=== PATIENT | female | born 1955 | race Caucasian/White ===

== ENCOUNTER 2017-04-07 16:03 | Inpatient (IN) | payer MEDICARE, OTHER ==
[~2017-04-07] VITALS: Ht 154.9 cm; Wt 61.4 kg
[2017-04-07 16:47] LABS: BASO # 0.1 x10^3/uL (0.0-0.2); BASO % 1 % (0-3); EOS # 0.2 x10^3/uL (0.0-0.7); EOS % 2 % (0-3); HEMATOCRIT 38.9 % (36.0-47.0); HEMOGLOBIN 13.4 g/dL (12.0-15.5); LYMPH # 2.1 x10^3/uL (1.0-4.8); LYMPH % 27 % (24-48); MEAN CORPUSCULAR HEMOGLOBIN 31 pg (25-35); MEAN CORPUSCULAR HGB CONC 34 g/dL (31-37); MEAN CORPUSCULAR VOLUME 91 fL (79-100); MONO # 0.7 x10^3/uL (0.0-1.1); MONO % 9 % (0-9); NEUT # 4.9 x10^3uL (1.8-7.7); NEUT % 62 % (31-73); PLATELET COUNT 264 x10^3/uL (140-400); RED BLOOD COUNT 4.28 x10^6/uL (3.50-5.40); RED CELL DISTRIBUTION WIDTH 13.4 % (11.5-14.5)
[2017-04-07 16:55] LABS: ALBUMIN 3.3 g/dL (3.4-5.0); ALBUMIN/GLOBULIN RATIO 1.1 (1.0-1.7); CALCIUM 8.8 mg/dL (8.5-10.1); CREATININE 1.3 mg/dL (0.6-1.0); GFR 41.9; MAGNESIUM 2.1 mg/dL (1.8-2.4); POTASSIUM 3.8 mmol/L (3.5-5.1); TOTAL BILIRUBIN 0.4 mg/dL (0.2-1.0); TOTAL PROTEIN 6.3 g/dL (6.4-8.2)
--- NOTE | 2017-04-07 17:16 | EKG ---
[address] [address] Test Date: 2017-04-07 Test Time: 16:12:54 Pat Name: BRUNILDA MARTINEZ Department: Room: Gender: F [employer] Supervisor: : 1955 Requested By: MISTY BARRAZA Order Number: [id number] Reading MD: Manuel Guido Measurements Intervals [place] Rate: 74 P: 42 MS: 142 QRS: 36 QRSD: 90 T: 64 QT: 380 QTc: 422 Interpretive Statements SINUS RHYTHM Electronically Signed On 04-20-2017 14:20:23 CDT by Manuel Guido
--- NOTE | 2017-04-07 17:18 | PHYS DOC ---
Past History Past Medical History: Bipolar, Dementia, Schizophrenia Past Surgical History: No Surgical History Alcohol Use: None Drug Use: None Adult General Chief Complaint Chief Complaint: PSYCH EVALUATION HPI HPI Zahra has a history of schizophrenia and frontotemporal dementia with worsening symptoms today. She became more combative today. Her history is limited by her cognitive status Review of Systems Review of Systems Unable to obtain review of systems due to current cognitive status Allergies Allergies Allergies Coded Allergies Type Severity Reaction Last Updated Verified No Known Drug Allergies 04/07/17 No Physical Exam Physical Exam Constitutional: Well developed, well nourished, no acute distress, non-toxic appearance. [] HENT: Normocephalic, atraumatic, bilateral external ears normal, oropharynx moist, no oral exudates, nose normal. [] Eyes: PERRLA, EOMI, conjunctiva normal, no discharge. [] Neck: Normal range of motion, no tenderness, supple, no stridor. [] Cardiovascular:Heart rate regular rhythm, no murmur [] Lungs & Thorax: Bilateral breath sounds clear to auscultation [] Abdomen: Bowel sounds normal, soft, no tenderness, no masses, no pulsatile masses. [] Skin: Warm, dry, no erythema, no rash. [] Back: No tenderness, no CVA tenderness. [] Extremities: No tenderness, no cyanosis, no clubbing, ROM intact, no edema. [] Neurologic: no focal deficits noted. [] Current Patient Data Vital Signs Vital Signs Date Time Temp Pulse Resp B/P (MAP) Pulse Ox O2 Delivery O2 Flow Rate FiO2 04/07/17 16:10 98.1 78 18 97 Room Air Lab Results Laboratory Tests Test 04/07/17 16:21 White Blood Count 8.0 x10^3/uL (4.0-11.0) Red Blood Count 4.28 x10^6/uL (3.50-5.40) Hemoglobin 13.4 g/dL (12.0-15.5) Hematocrit 38.9 % (36.0-47.0) Mean Corpuscular Volume 91 fL (79-100) Mean Corpuscular Hemoglobin 31 pg (25-35) Mean Corpuscular Hemoglobin Concent 34 g/dL (31-37) Red Cell Distribution Width 13.4 % (11.5-14.5) Platelet Count 264 x10^3/uL (140-400) Neutrophils (%) (Auto) 62 % (31-73) Lymphocytes (%) (Auto) 27 % (24-48) Monocytes (%) (Auto) 9 % (0-9) Eosinophils (%) (Auto) 2 % (0-3) Basophils (%) (Auto) 1 % (0-3) Neutrophils # (Auto) 4.9 x10^3uL (1.8-7.7) Lymphocytes # (Auto) 2.1 x10^3/uL (1.0-4.8) Monocytes # (Auto) 0.7 x10^3/uL (0.0-1.1) Eosinophils # (Auto) 0.2 x10^3/uL (0.0-0.7) Basophils # (Auto) 0.1 x10^3/uL (0.0-0.2) Sodium Level 139 mmol/L (136-145) Potassium Level 3.8 mmol/L (3.5-5.1) Chloride Level 105 mmol/L (98-107) Carbon Dioxide Level 27 mmol/L (21-32) Anion Gap 7 (6-14) Blood Urea Nitrogen 17 mg/dL (7-20) Creatinine 1.3 mg/dL (0.6-1.0) H Estimated GFR (Cockcroft-Gault) 41.9 BUN/Creatinine Ratio 13 (6-20) Glucose Level 146 mg/dL (70-99) H Calcium Level 8.8 mg/dL (8.5-10.1) Magnesium Level 2.1 mg/dL (1.8-2.4) Total Bilirubin 0.4 mg/dL (0.2-1.0) Aspartate Amino Transferase (AST) 29 U/L (15-37) Alanine Aminotransferase (ALT) 31 U/L (14-59) Alkaline Phosphatase 99 U/L (46-116) Total Protein 6.3 g/dL (6.4-8.2) L Albumin 3.3 g/dL (3.4-5.0) L Albumin/Globulin Ratio 1.1 (1.0-1.7) EKG EKG [] Radiology/Procedures Radiology/Procedures [] Course & Med Decision Making Course & Med Decision Making No obvious medical issues [place] Disclaimer Dragon Disclaimer This chart was dictated in whole or in part using Voice Recognition software in a busy, high-work load, and often noisy Emergency Department environment. It may contain unintended and wholly unrecognized errors or omissions. Departure Departure: Impression: Primary Impression: Encounter for medical screening examination Disposition: 65 XFER TO PSYCH HOSP/UNIT Condition: STABLE Referrals: JENNY OCASIO JR, MD (PCP) MISTY BARRAZA MD Apr 07, 2017 17:18
[2017-04-07 18:15] LABS: BILIRUBIN,URINE NEG (NEG); CLARITY,URINE CLEAR; COLOR,URINE STRAW; GLUCOSE,URINE NEG (NEG); NITRITE,URINE NEG (NEG); UROBILINOGEN,URINE 0.2 mg/dL (0.2 mg/dL)
[2017-04-07 18:16] LABS: AMORPHOUS SEDIMENT,UR PRESENT /HPF; BACTERIA,URINE 0 /HPF (0-FEW); SQUAMOUS EPITHELIAL CELL,UR FEW /LPF
--- NOTE | 2017-04-07 20:12 | PDOC ---
Exam Jose Demential Exam: Jose Note: Please also refer to the separate dictated note~for this date of service dictated separately.~Patient seen individually. Discussed the patient with Nursing staff reviewed the chart.~Reviewed interim history and current functioning. Reviewed vital signs,~Labs/ Radiology~and current medications noted below. Continue current treatment with the changes noted in the dictated addendum note Assessment: Vital Signs: Vital Signs Date Time Temp Pulse Resp B/P (MAP) Pulse Ox O2 Delivery O2 Flow Rate FiO2 04/07/17 16:10 98.1 78 18 97 Room Air Labs: Laboratory Tests Test 04/07/17 16:21 04/07/17 17:30 White Blood Count 8.0 x10^3/uL (4.0-11.0) Red Blood Count 4.28 x10^6/uL (3.50-5.40) Hemoglobin 13.4 g/dL (12.0-15.5) Hematocrit 38.9 % (36.0-47.0) Mean Corpuscular Volume 91 fL (79-100) Mean Corpuscular Hemoglobin 31 pg (25-35) Mean Corpuscular Hemoglobin Concent 34 g/dL (31-37) Red Cell Distribution Width 13.4 % (11.5-14.5) Platelet Count 264 x10^3/uL (140-400) Neutrophils (%) (Auto) 62 % (31-73) Lymphocytes (%) (Auto) 27 % (24-48) Monocytes (%) (Auto) 9 % (0-9) Eosinophils (%) (Auto) 2 % (0-3) Basophils (%) (Auto) 1 % (0-3) Neutrophils # (Auto) 4.9 x10^3uL (1.8-7.7) Lymphocytes # (Auto) 2.1 x10^3/uL (1.0-4.8) Monocytes # (Auto) 0.7 x10^3/uL (0.0-1.1) Eosinophils # (Auto) 0.2 x10^3/uL (0.0-0.7) Basophils # (Auto) 0.1 x10^3/uL (0.0-0.2) Sodium Level 139 mmol/L (136-145) Potassium Level 3.8 mmol/L (3.5-5.1) Chloride Level 105 mmol/L (98-107) Carbon Dioxide Level 27 mmol/L (21-32) Anion Gap 7 (6-14) Blood Urea Nitrogen 17 mg/dL (7-20) Creatinine 1.3 mg/dL (0.6-1.0) H Estimated GFR (Cockcroft-Gault) 41.9 BUN/Creatinine Ratio 13 (6-20) Glucose Level 146 mg/dL (70-99) H Calcium Level 8.8 mg/dL (8.5-10.1) Magnesium Level 2.1 mg/dL (1.8-2.4) Total Bilirubin 0.4 mg/dL (0.2-1.0) Aspartate Amino Transferase (AST) 29 U/L (15-37) Alanine Aminotransferase (ALT) 31 U/L (14-59) Alkaline Phosphatase 99 U/L (46-116) Total Protein 6.3 g/dL (6.4-8.2) L Albumin 3.3 g/dL (3.4-5.0) L Albumin/Globulin Ratio 1.1 (1.0-1.7) Urine Collection Type U cath Urine Color Straw Urine Clarity Clear Urine pH 6.5 Urine Specific [place] <=1.005 Urine Protein Neg (NEG-TRACE) Urine Glucose (UA) Neg mg/dL (NEG) Urine Ketones (Stick) Neg mg/dL (NEG) Urine Blood Neg (NEG) Urine Nitrite Neg (NEG) Urine Bilirubin Neg (NEG) Urine Urobilinogen Dipstick 0.2 mg/dL (0.2 mg/dL) Urine Leukocyte Esterase Neg (NEG) Urine RBC 1-2 /HPF (0-2) Urine WBC 1-4 /HPF (0-4) Urine Squamous Epithelial Cells Few /LPF Urine Transitional Epithelial Cells Few /LPF Urine Amorphous Sediment Present /HPF Urine Bacteria 0 /HPF (0-FEW) Diagnosis: Problems: (1) Encounter for medical screening examination CRISTY SEWELL MD Apr 07, 2017 20:12
[2017-04-07] MEDS ORDERED: CETIRIZINE HCL 10 MG TABLET PO PRN (21:00)
[2017-04-07] MEDS ORDERED: BISMUTH SUBSALICYLATE 262 MG/15 ML ORAL.SUSP 236ML BOTTLE. PO PRN (21:00)
[2017-04-07] MEDS ORDERED: LOPERAMIDE 2 MG CAPSULE PO PRN (21:00)
[2017-04-07] MEDS ORDERED: HYDROcodone/APAP 5/325MG 1 TAB TABLET PO PRN (21:00)
[2017-04-07] MEDS ORDERED: ATOR20TA58 PO (21:08)
[2017-04-07] MEDS ORDERED: LOPE2CAP PO (21:08)
[2017-04-07] MEDS ORDERED: LORA1TAB PO (21:08)
[2017-04-07] MEDS ORDERED: VENL75CA6 PO (21:08)
[2017-04-07] MEDS ORDERED: CETI10TA16 PO (21:08)
[2017-04-07] MEDS ORDERED: BISM262O3 PO (21:08)
[2017-04-07] MEDS ORDERED: CARV6.252 PO (21:08)
[2017-04-07] MEDS ORDERED: RISP1TAB43 PO (21:08)
[2017-04-07] MEDS ORDERED: HYDR-2758 PO (21:08)
[2017-04-07] MEDS ORDERED: MULT1TAB57 PO (21:08)
[2017-04-07] MEDS ORDERED: MEMA28CA PO (21:08)
[2017-04-07] MEDS ORDERED: METHYL SALICYLATE/MENTHOL TOPICAL OINTMENT 29GM TUBE. TP PRN (21:15)
[2017-04-07] MEDS ORDERED: MAGNESIUM HYDROXIDE 2,400 MG/30 ML ORAL.SUSP. PO PRN (21:15)
[2017-04-07] MEDS ORDERED: LORazepam 1 MG TABLET PO PRN (21:15)
[2017-04-07] MEDS ORDERED: MAG HYDROX/AL HYDROX/SIMETH 30 ML ORAL.SUSP PO PRN (21:15)
[2017-04-07] MEDS: ATORVASTATIN CALCIUM 20 MG TABLET PO SCH (21:40)
[2017-04-07] MEDS: risperiDONE 1 MG TABLET. PO SCH (21:40)
[2017-04-07 22:40] VITALS: BP 163/78
--- NOTE | 2017-04-08 02:32 | ACF ---
Admission Criteria Forms PSYCHIATRIC DISORDERS Clinical Indications for Inpatient Care (Place 'X' for any and all applicable criteria): Ongoing inpatient care may be needed for 1 or more of the following(1)(2)(3)(4)( 6)(7)(8): [ ]I. Danger to self or others not manageable at lower level of care. [ ]II. Grave disability (eg, inability to perform self care necessary at lower level of care) [ ]III. Agitation or inappropriate behavior interfering with care for primary condition (eg, attempting to discontinue lines or drains prematurely, unable to cooperate with respiratory care) [x]IV. Severe disability or disorder indicated by ALL of the following: [x]a) Severe behavioral health disorder-related symptoms or condition indicated by 1 or more of the following: [ ]i) Severe problem with cognition, memory, judgment, or impulse control [x]ii) Severe clinical manifestations (eg, hallucinations, delusions, other acute psychotic symptoms, elma, extreme agitation or anxiety) [x]b) Patient management at lower level of care is not feasible until acute intervention or modification is initiated. Extended stay beyond goal length of stay for the primary condition may be needed untilALLof the following are present(1)(2)(3)(4)(722)(23): [ ]a) Danger to self or others is absent or manageable at lower level of care [ ]b) Behavior crisis management, including physical or chemical restraints, is required and is not available at a lower level of care. [ ]c) Behavioral symptoms (e.g., agitation, somnolence, inappropriate behavior) are present, and are not manageable at a lower level of care. [ ]d) Patient cannot understand follow-up treatment and crisis plan. [ ]e) Provider and supports are sufficiently available at lower level of care. [ ]f) Patient can participate (e.g., verify absence of plan for harm) and is in needed of monitoring. The original [facility] My [employer] content created by [facility] [employer] has been revised. The portions of the content which have been revised are identified through the use of italic text, and [employer] has neither reviewed nor approved the modified material. All other unmodified content is copyright [facility] [employer]. Please see references footnoted in the original [facility] edition 2015 Admission Criteria Met?: Yes BRANDON KIM Apr 08, 2017 02:32
[2017-04-08] MEDS: MEMANTINE 10 MG TABLET. PO SCH ×2 (08:25→21:00)
[2017-04-08] MEDS: NICOTINE 7MG PATCH. TD SCH (08:25)
[2017-04-08] MEDS: risperiDONE 1 MG TABLET. PO SCH ×2 (08:25→21:00)
[2017-04-08] MEDS: MULTIVITAMIN with MINERAL TABLET. PO SCH (08:25)
[2017-04-08] MEDS ORDERED: VENLAFAXINE XR 37.5 MG CAP.ER.24H. PO SCH (09:00)
[2017-04-08 10:17] VITALS: BP 140/92
[2017-04-08] MEDS: CARVEDILOL 6.25 MG TABLET PO SCH ×2 (10:27→17:03)
[2017-04-08 14:07] LABS: THYROID STIM HORMONE (TSH) 2.643 uIU/mL (0.358-3.740)
[2017-04-08 16:09] VITALS: BP 145/82
--- NOTE | 2017-04-08 17:41 | PDOC2 ---
CONSULT Date of Admission DATE: 04/07/17 TIME: 17:27 Reason for Consult: medical management Referring Physician: Dr Barros Chief Complaint The patient lives at [facility] She was noted to be resistive , aggressive with care, displaying bizzare behaviourslike comin with underwaer over clothing, moving heavy furnitureand has attempted to hit staff Source: Caregiver Problem List Problems HTN HYPERLIDEMIA CKD Dysphagia Picks disease Aphasia History of Present Illness Diagnosed with dementia about 2 years and a year ago she was living home Cardiovascular: HTN, hyperipidemia CENTRAL NERVOUS SYSTEM: Dementia GI: Other (dysphgia) Heme/Onc: No pertinent hx Hepatobiliary: No pertinent hx Psych: Schizophrenia Renal/: Chronic renal insuff Endocrine: No pertinent hx Dermatology: No pertinent hx Past Surgical History: No pertinent history Smoke: <1 pack per day ALCOHOL: none Drugs: None Lives: Prison Current Medications Current Medications Atorvastatin Calcium (Lipitor) 20 mg QHS PO Last administered on 04/07/17 21: 40; Start 04/07/17 at 21:00 Bismuth Subsalicylate (Pepto-Bismol) 262 mg PRN DAILY PRN PO GI SYMPTOMS; Start 04/07/17 at 21:00 Carvedilol (Coreg) 6.25 mg BIDWMEALS PO Last administered on 04/08/17 17:03; Start 04/08/17 at 08:00 Cetirizine HCl (ZyrTEC) 10 mg PRN DAILY PRN PO ALLERGIES; Start 04/07/17 at 21: 00 Acetaminophen/ Hydrocodone Bitart (Lortab 5/325) 1 tab PRN Q4HRS PRN PO PAIN; Start 04/07/17 at 21:00 Loperamide HCl (Imodium) 2 mg PRN DAILY PRN PO loose stools; Start 04/07/17 at 21:00 Multivitamins/ Calcium (Thera-M Plus) 1 tab DAILY PO Last administered on 08:25; Start 04/08/17 at 09:00 Lorazepam (Ativan) 1 mg PRN TID PRN PO ANXIETY / AGITATION; Start 04/07/17 at 21:15 Risperidone (RisperDAL) 1 mg BID PO Last administered on 04/08/17 08:25; Start 04/07/17 at 21:30 Memantine (Namenda) 10 mg BID PO Last administered on 04/08/17 08:25; Start at 09:00 Venlafaxine HCl (Effexor Xr) 37.5 mg BID PO Last administered on 04/08/17 08: 25; Start 04/08/17 at 09:00 Acetaminophen (Tylenol) 650 mg PRN Q6HRS PRN PO PAIN / TEMP; Start 04/07/17 at 21:15 Multi-Ingredient Ointment (Analgesic [place]) 1 lisa PRN QID PRN TP MUSCLE PAIN; Start 04/07/17 at 21:15 Al Hydroxide/Mg Hydroxide (Mylanta Plus Xs) 15 ml PRN AFTMEALHC PRN PO DYSPEPSIA; Start 04/07/17 at 21:15 Magnesium Hydroxide (Milk Of Magnesia) 2,400 mg PRN QHS PRN PO CONSTIPATION; Start 04/07/17 at 21:15 Nicotine (Nicoderm Cq 7mg) 1 patch DAILY TD Last administered on 04/08/17 08: 25; Start 04/08/17 at 09:00 Active Scripts Active Reported [place] Bismuth (Bismuth Subsalicylate) 262 Mg/15 Ml Oral.susp 262 Mg PO PRN DAILY PRN Lorazepam 1 Mg Tablet 1 Mg PO PRN TID PRN Loperamide (Loperamide Hcl) 2 Mg Capsule 2 Mg PO PRN PRN Hydrocodone-Apap 5-325 (Hydrocodone Bit/Acetaminophen) 1 Each Tablet 1 Tab PO PRN Q4HRS PRN Cetirizine Hcl 10 Mg Tablet 10 Mg PO PRN DAILY PRN Risperdal (Risperidone) 1 Mg Tablet 1 Mg PO BID Atorvastatin Calcium 20 Mg Tablet 20 Mg PO QHS Carvedilol 6.25 Mg Tablet 6.25 Mg PO BIDWMEALS Venlafaxine Hcl Er (Venlafaxine Hcl) 75 Mg Cap.er.24h 75 Mg PO DAILY Therems-M (Multivits, W-Fe,Other Min) 1 Each Tablet 1 Each PO DAILY Namenda Xr (Memantine Hcl) 28 Mg Cap.spr.24 28 Mg PO DAILY Allergies: Coded Allergies: No Known Drug Allergies (Unverified , 04/07/17) Physical Exam aphasic does not give any useful information Vitals are stable she is ambulatory without assistance or assistive devices General: Other VITALS Vital Signs Date Time Temp Pulse Resp B/P (MAP) Pulse Ox O2 Delivery O2 Flow Rate FiO2 04/08/17 17:03 81 145/82 04/08/17 16:09 98.4 18 96 04/07/17 22:40 Room Air Labs Laboratory Tests Test 04/07/17 16:21 04/07/17 16:25 04/07/17 17:30 White Blood Count 8.0 x10^3/uL (4.0-11.0) Red Blood Count 4.28 x10^6/uL (3.50-5.40) Hemoglobin 13.4 g/dL (12.0-15.5) Hematocrit 38.9 % (36.0-47.0) Mean Corpuscular Volume 91 fL (79-100) Mean Corpuscular Hemoglobin 31 pg (25-35) Mean Corpuscular Hemoglobin Concent 34 g/dL (31-37) Red Cell Distribution Width 13.4 % (11.5-14.5) Platelet Count 264 x10^3/uL (140-400) Neutrophils (%) (Auto) 62 % (31-73) Lymphocytes (%) (Auto) 27 % (24-48) Monocytes (%) (Auto) 9 % (0-9) Eosinophils (%) (Auto) 2 % (0-3) Basophils (%) (Auto) 1 % (0-3) Neutrophils # (Auto) 4.9 x10^3uL (1.8-7.7) Lymphocytes # (Auto) 2.1 x10^3/uL (1.0-4.8) Monocytes # (Auto) 0.7 x10^3/uL (0.0-1.1) Eosinophils # (Auto) 0.2 x10^3/uL (0.0-0.7) Basophils # (Auto) 0.1 x10^3/uL (0.0-0.2) Sodium Level 139 mmol/L (136-145) Potassium Level 3.8 mmol/L (3.5-5.1) Chloride Level 105 mmol/L (98-107) Carbon Dioxide Level 27 mmol/L (21-32) Anion Gap 7 (6-14) Blood Urea Nitrogen 17 mg/dL (7-20) Creatinine 1.3 mg/dL (0.6-1.0) Estimated GFR (Cockcroft-Gault) 41.9 BUN/Creatinine Ratio 13 (6-20) Glucose Level 146 mg/dL (70-99) Calcium Level 8.8 mg/dL (8.5-10.1) Magnesium Level 2.1 mg/dL (1.8-2.4) Total Bilirubin 0.4 mg/dL (0.2-1.0) Aspartate Amino Transf (AST/SGOT) 29 U/L (15-37) Alanine Aminotransferase (ALT/SGPT) 31 U/L (14-59) Alkaline Phosphatase 99 U/L (46-116) Total Protein 6.3 g/dL (6.4-8.2) Albumin 3.3 g/dL (3.4-5.0) Albumin/Globulin Ratio 1.1 (1.0-1.7) Triglycerides Level 80 mg/dL (0-150) Cholesterol Level 161 mg/dL (0-200) LDL Cholesterol, Calculated 77 mg/dL (0-100) VLDL Cholesterol, Calculated 16 mg/dL (0-40) Non-HDL Cholesterol Calculated 93 mg/dL (0-129) HDL Cholesterol 68 mg/dL (40-60) Cholesterol/HDL Ratio 2.0 Thyroid Stimulating Hormone (TSH) 2.643 uIU/mL (0.358-3.740) Iron Level 82 ug/dL (50-170) Total Iron Binding Capacity 302 ug/dL (250-450) Iron Saturation 27 % (15-34) 25-Hydroxy Vitamin D Total 29.6 ng/mL (30.0-100.0) Urine Collection Type U cath Urine Color Straw Urine Clarity Clear Urine pH 6.5 Urine Specific [place] <=1.005 Urine Protein Neg (NEG-TRACE) Urine Glucose (UA) Neg mg/dL (NEG) Urine Ketones (Stick) Neg mg/dL (NEG) Urine Blood Neg (NEG) Urine Nitrite Neg (NEG) Urine Bilirubin Neg (NEG) Urine Urobilinogen Dipstick 0.2 mg/dL (0.2 mg/dL) Urine Leukocyte Esterase Neg (NEG) Urine RBC 1-2 /HPF (0-2) Urine WBC 1-4 /HPF (0-4) Urine Squamous Epithelial Cells Few /LPF Urine Transitional Epithelial Cells Few /LPF Urine Amorphous Sediment Present /HPF Urine Bacteria 0 /HPF (0-FEW) Assessment/Plan Hypertension to continue coreg Hyperlipidemia continue atorvastatin CKD monitor Tobacco use disorder encourage to quit Vitamin D deficiency to replace Problems: LISETH LUNDBERG MD Apr 08, 2017 17:41
[2017-04-08] MEDS: VENLAFAXINE 50 MG TABLET. PO SCH ×3 (19:00→21:04)
[2017-04-08] MEDS ORDERED: VENL225T PO (19:01)
[2017-04-08 19:08] LABS: T3 TOTAL 130 ng/dL (71-180); THYROXINE 8.4 ug/dL (4.5-12.0)
--- NOTE | 2017-04-08 20:35 | PDOC ---
Exam Jose Demential Exam: Jose Note: Please also refer to the separate dictated note~for this date of service dictated separately.~Patient seen individually. Discussed the patient with Nursing staff reviewed the chart.~Reviewed interim history and current functioning. Reviewed vital signs,~Labs/ Radiology~and current medications noted below. Continue current treatment with the changes noted in the dictated addendum note Assessment: Vital Signs: Vital Signs Date Time Temp Pulse Resp B/P (MAP) Pulse Ox O2 Delivery O2 Flow Rate FiO2 04/08/17 17:03 81 145/82 04/08/17 16:09 98.4 18 96 04/07/17 22:40 Room Air I&O Intake and Output 04/08/17 07:00 Intake Total 120 ml Balance 120 ml Intake Oral 120 ml Labs: Laboratory Tests Test 04/07/17 21:55 Thyroxine (T4) 8.4 ug/dL (4.5-12.0) Total Triiodothyronine (TT3) 130 ng/dL (71-180) RPR Titer Additional Testing Pending Current Medications: Meds: Current Medications Atorvastatin Calcium (Lipitor) 20 mg QHS PO Last administered on 04/07/17 21: 40; Start 04/07/17 at 21:00 Bismuth Subsalicylate (Pepto-Bismol) 262 mg PRN DAILY PRN PO GI SYMPTOMS; Start 04/07/17 at 21:00 Carvedilol (Coreg) 6.25 mg BIDWMEALS PO Last administered on 04/08/17 17:03; Start 04/08/17 at 08:00 Cetirizine HCl (ZyrTEC) 10 mg PRN DAILY PRN PO ALLERGIES; Start 04/07/17 at 21: 00 Acetaminophen/ Hydrocodone Bitart (Lortab 5/325) 1 tab PRN Q4HRS PRN PO PAIN; Start 04/07/17 at 21:00 Loperamide HCl (Imodium) 2 mg PRN DAILY PRN PO loose stools; Start 04/07/17 at 21:00 Multivitamins/ Calcium (Thera-M Plus) 1 tab DAILY PO Last administered on 08:25; Start 04/08/17 at 09:00 Lorazepam (Ativan) 1 mg PRN TID PRN PO ANXIETY / AGITATION; Start 04/07/17 at 21:15 Risperidone (RisperDAL) 1 mg BID PO Last administered on 04/08/17 08:25; Start 04/07/17 at 21:30 Memantine (Namenda) 10 mg BID PO Last administered on 04/08/17 08:25; Start at 09:00 Venlafaxine HCl (Effexor Xr) 37.5 mg BID PO Last administered on 04/08/17 08: 25; Start 04/08/17 at 09:00; Stop 04/08/17 at 18:57; Status DC Acetaminophen (Tylenol) 650 mg PRN Q6HRS PRN PO PAIN / TEMP; Start 04/07/17 at 21:15 Multi-Ingredient Ointment (Analgesic [place]) 1 lisa PRN QID PRN TP MUSCLE PAIN; Start 04/07/17 at 21:15 Al Hydroxide/Mg Hydroxide (Mylanta Plus Xs) 15 ml PRN AFTMEALHC PRN PO DYSPEPSIA; Start 04/07/17 at 21:15 Magnesium Hydroxide (Milk Of Magnesia) 2,400 mg PRN QHS PRN PO CONSTIPATION; Start 04/07/17 at 21:15 Nicotine (Nicoderm Cq 7mg) 1 patch DAILY TD Last administered on 04/08/17 08: 25; Start 04/08/17 at 09:00 Vitamin D (Vitamin D3) 50,000 unit WEEKLY PO ; Start 04/09/17 at 09:00 Venlafaxine HCl (Effexor) 50 mg TID PO ; Start 04/08/17 at 19:00 Divalproex Sodium (Depakote Sprinkles) 250 mg HS PO ; Start 04/08/17 at 21:00 Active Scripts Active Reported Venlafaxine Hcl Er (Venlafaxine Hcl) 225 Mg Tab.er.24 225 Mg PO DAILY [place] Bismuth (Bismuth Subsalicylate) 262 Mg/15 Ml Oral.susp 262 Mg PO PRN DAILY PRN Lorazepam 1 Mg Tablet 1 Mg PO PRN TID PRN Loperamide (Loperamide Hcl) 2 Mg Capsule 2 Mg PO PRN PRN Hydrocodone-Apap 5-325 (Hydrocodone Bit/Acetaminophen) 1 Each Tablet 1 Tab PO PRN Q4HRS PRN Cetirizine Hcl 10 Mg Tablet 10 Mg PO PRN DAILY PRN Risperdal (Risperidone) 1 Mg Tablet 1 Mg PO BID Atorvastatin Calcium 20 Mg Tablet 20 Mg PO QHS Carvedilol 6.25 Mg Tablet 6.25 Mg PO BIDWMEALS Venlafaxine Hcl Er (Venlafaxine Hcl) 75 Mg Cap.er.24h 75 Mg PO DAILY Therems-M (Multivits,Th W-Fe,Other Min) 1 Each Tablet 1 Each PO DAILY Namenda Xr (Memantine Hcl) 28 Mg Cap.spr.24 28 Mg PO DAILY Diagnosis: Problems: (1) Encounter for medical screening examination CRISTY SEWELL MD Apr 08, 2017 20:35
[2017-04-08] MEDS: ATORVASTATIN CALCIUM 20 MG TABLET PO SCH (21:00)
[2017-04-08] MEDS: DIVALPROEX 125 MG CAP.SPRINK PO SCH (21:02)
[2017-04-09 05:34] VITALS: BP 176/92
[2017-04-09 06:09] LABS: HEMOGLOBIN A1C 5.7 % (4.8-5.6)
[2017-04-09] MEDS: NICOTINE 7MG PATCH. TD SCH (08:23)
[2017-04-09] MEDS: risperiDONE 1 MG TABLET. PO SCH ×2 (08:24→19:38)
[2017-04-09] MEDS: MEMANTINE 10 MG TABLET. PO SCH ×2 (08:24→19:38)
[2017-04-09] MEDS: VENLAFAXINE 50 MG TABLET. PO SCH ×3 (08:24→19:38)
[2017-04-09] MEDS: MULTIVITAMIN with MINERAL TABLET. PO SCH (08:24)
[2017-04-09] MEDS: CARVEDILOL 6.25 MG TABLET PO SCH ×2 (08:25→17:11)
[2017-04-09] MEDS: CHOLECALCIFEROL (VITAMIN D3) 50,000 UNIT CAPSULE PO SCH (08:25)
[2017-04-09 16:42] VITALS: BP 144/90
[2017-04-09] MEDS: DIVALPROEX 125 MG CAP.SPRINK PO SCH (19:38)
[2017-04-09] MEDS: ATORVASTATIN CALCIUM 20 MG TABLET PO SCH (19:38)
--- NOTE | 2017-04-09 20:38 | PDOC ---
Exam Jose Demential Exam: Jose Note: Please also refer to the separate dictated note~for this date of service dictated separately.~Patient seen individually. Discussed the patient with Nursing staff reviewed the chart.~Reviewed interim history and current functioning. Reviewed vital signs,~Labs/ Radiology~and current medications noted below. Continue current treatment with the changes noted in the dictated addendum note Patient was seen on grounds the evening of 04/09. Per nursing report patient as been wandering anxious exit seeking pushing the exit door following patients out of the door. At times she is somewhat difficult to redirect and is not communicating verbally very much. She was able to read her name Zahra on the nameplate outside her door. We will obtain her past psychiatric records for when she was diagnosed with frontal lobe dementia and picks disease and also check a CT head since we do not have a record of one being done recently. Review of systems patient is not very forthcoming verbally when questioned on this but no overt CV GI/ pulmonary eye ENT system symptoms on review. Reliability poor. She is not very verbal at all. Mental status examination: Patient seems oriented to herself. She is not very verbal. Insight and judgment recent remote memory attention concentration fund of knowledge poor consistent with her diagnosis. She appears somewhat psychotic at times but difficult to assess since she is quite nonverbal. Intellect impaired judgment marginal language function seems impaired. No active suicidal or homicidal ideation. Impression: Major neurocognitive disorder multifactorial secondary to frontotemporal dementia of picks disease Alzheimers vascular with delusions and depression behavioral disturbance. Bipolar 1 disorder mixed with psychotic features anxiety disorder unspecified impulse control disorder unspecified Plan: Well obtain her past psychiatric records from when she was diagnosed with the above diagnoses. Continue Depakote 250 mg at bedtime check labs level in [address] head the Effexor was reduced to Effexor ER 150 mg a day continue Ativan 1 mg 3 times a day when necessary Namenda XR 28 mg a day Risperdal 1 mg twice a day for now and adjust further as clinically indicated. Assessment: Vital Signs: Vital Signs Date Time Temp Pulse Resp B/P (MAP) Pulse Ox O2 Delivery O2 Flow Rate FiO2 04/09/17 17:11 89 144/90 04/09/17 16:03 98.7 21 94 04/07/17 22:40 Room Air I&O Intake and Output 04/09/17 07:00 Intake Total 240 ml Balance 240 ml Intake Oral 240 ml # Bowel Movements 2 Current Medications: Meds: Current Medications Atorvastatin Calcium (Lipitor) 20 mg QHS PO Last administered on 04/09/17 19: 38; Start 04/07/17 at 21:00 Bismuth Subsalicylate (Pepto-Bismol) 262 mg PRN DAILY PRN PO GI SYMPTOMS; Start 04/07/17 at 21:00 Carvedilol (Coreg) 6.25 mg BIDWMEALS PO Last administered on 04/09/17 17:11; Start 04/08/17 at 08:00 Cetirizine HCl (ZyrTEC) 10 mg PRN DAILY PRN PO ALLERGIES; Start 04/07/17 at 21: 00 Acetaminophen/ Hydrocodone Bitart (Lortab 5/325) 1 tab PRN Q4HRS PRN PO PAIN; Start 04/07/17 at 21:00 Loperamide HCl (Imodium) 2 mg PRN DAILY PRN PO loose stools; Start 04/07/17 at 21:00 Multivitamins/ Calcium (Thera-M Plus) 1 tab DAILY PO Last administered on 08:24; Start 04/08/17 at 09:00 Lorazepam (Ativan) 1 mg PRN TID PRN PO ANXIETY / AGITATION; Start 04/07/17 at 21:15 Risperidone (RisperDAL) 1 mg BID PO Last administered on 04/09/17 19:38; Start 04/07/17 at 21:30 Memantine (Namenda) 10 mg BID PO Last administered on 04/09/17 19:38; Start at 09:00 Venlafaxine HCl (Effexor Xr) 37.5 mg BID PO Last administered on 04/08/17 08: 25; Start 04/08/17 at 09:00; Stop 04/08/17 at 18:57; Status DC Acetaminophen (Tylenol) 650 mg PRN Q6HRS PRN PO PAIN / TEMP; Start 04/07/17 at 21:15 Multi-Ingredient Ointment (Analgesic [place]) 1 lisa PRN QID PRN TP MUSCLE PAIN; Start 04/07/17 at 21:15 Al Hydroxide/Mg Hydroxide (Mylanta Plus Xs) 15 ml PRN AFTMEALHC PRN PO DYSPEPSIA; Start 04/07/17 at 21:15 Magnesium Hydroxide (Milk Of Magnesia) 2,400 mg PRN QHS PRN PO CONSTIPATION; Start 04/07/17 at 21:15 Nicotine (Nicoderm Cq 7mg) 1 patch DAILY TD Last administered on 04/09/17 08: 23; Start 04/08/17 at 09:00 Vitamin D (Vitamin D3) 50,000 unit WEEKLY PO Last administered on 04/09/17 08: 25; Start 04/09/17 at 09:00 Venlafaxine HCl (Effexor) 50 mg TID PO Last administered on 04/09/17 19:38; Start 04/08/17 at 19:00 Divalproex Sodium (Depakote Sprinkles) 250 mg HS PO Last administered on 19:38; Start 04/08/17 at 21:00 Active Scripts Active Reported Venlafaxine Hcl Er (Venlafaxine Hcl) 225 Mg Tab.er.24 225 Mg PO DAILY [place] Bismuth (Bismuth Subsalicylate) 262 Mg/15 Ml Oral.susp 262 Mg PO PRN DAILY PRN Lorazepam 1 Mg Tablet 1 Mg PO PRN TID PRN Loperamide (Loperamide Hcl) 2 Mg Capsule 2 Mg PO PRN PRN Hydrocodone-Apap 5-325 (Hydrocodone Bit/Acetaminophen) 1 Each Tablet 1 Tab PO PRN Q4HRS PRN Cetirizine Hcl 10 Mg Tablet 10 Mg PO PRN DAILY PRN Risperdal (Risperidone) 1 Mg Tablet 1 Mg PO BID Atorvastatin Calcium 20 Mg Tablet 20 Mg PO QHS Carvedilol 6.25 Mg Tablet 6.25 Mg PO BIDWMEALS Venlafaxine Hcl Er (Venlafaxine Hcl) 75 Mg Cap.er.24h 75 Mg PO DAILY [place]-M (Multivits, W-Fe,Other Min) 1 Each Tablet 1 Each PO DAILY Namenda Xr (Memantine Hcl) 28 Mg Cap.spr.24 28 Mg PO DAILY Diagnosis: Problems: (1) Encounter for medical screening examination CRISTY SEWELL MD Apr 09, 2017 20:38
--- NOTE | 2017-04-09 21:25 | RAD ---
CT Head W/O Contrast: History: Change mental status Comparison: none Axial images were obtained without contrast. There is moderate diffuse atrophy. There is no mass effect, extraaxial fluid collections or hydrocephalus. There is no focal loss of pacheco-white matter distinction to suggest acute ischemia, i.e. stroke. Impression: Moderate diffuse cerebral and cerebellar atrophy is advanced for the patient's age. Otherwise no acute findings. PQRS Compliance Statement: One or more of the following individualized dose reduction techniques were utilized for this examination: 1. Automated exposure control 2. Adjustment of the mA and/or kV according to patient size 3. Use of iterative reconstruction technique Electronically signed by: Jorge Hwang III, MD (04/09/2017 9:21 PM) [facility]
[2017-04-10 05:42] VITALS: BP 121/72
[2017-04-10] MEDS: ACETAMINOPHEN 325 MG TABLET PO PRN (06:31)
[2017-04-10] MEDS: risperiDONE 1 MG TABLET. PO SCH (08:04)
[2017-04-10] MEDS: MEMANTINE 10 MG TABLET. PO SCH ×2 (08:04→19:58)
[2017-04-10] MEDS: VENLAFAXINE 50 MG TABLET. PO SCH ×3 (08:04→19:58)
[2017-04-10] MEDS: NICOTINE 7MG PATCH. TD SCH (08:05)
[2017-04-10] MEDS: MULTIVITAMIN with MINERAL TABLET. PO SCH (08:05)
[2017-04-10] MEDS: CARVEDILOL 6.25 MG TABLET PO SCH ×2 (08:05→17:28)
[2017-04-10 16:07] VITALS: BP 168/89
[2017-04-10] MEDS: DIVALPROEX 125 MG CAP.SPRINK PO SCH (19:58)
[2017-04-10] MEDS: ATORVASTATIN CALCIUM 20 MG TABLET PO SCH (19:58)
[2017-04-10] MEDS: risperiDONE 0.5 MG TABLET. PO SCH (19:59)
--- NOTE | 2017-04-10 20:11 | PDOC ---
Exam Jose Demential Exam: Jose Note: Please also refer to the separate dictated note~for this date of service dictated separately.~Patient seen individually. Discussed the patient with Nursing staff reviewed the chart.~Reviewed interim history and current functioning. Reviewed vital signs,~Labs/ Radiology~and current medications noted below. Continue current treatment with the changes noted in the dictated addendum note Assessment: Vital Signs: Vital Signs Date Time Temp Pulse Resp B/P (MAP) Pulse Ox O2 Delivery O2 Flow Rate FiO2 04/10/17 17:28 82 168/89 04/10/17 16:07 97.7 18 95 04/07/17 22:40 Room Air I&O Intake and Output 04/10/17 07:00 Intake Total 540 ml Balance 540 ml Intake Oral 540 ml Current Medications: Meds: Current Medications Atorvastatin Calcium (Lipitor) 20 mg QHS PO Last administered on 04/10/17 19: 58; Start 04/07/17 at 21:00 Bismuth Subsalicylate (Pepto-Bismol) 262 mg PRN DAILY PRN PO GI SYMPTOMS; Start 04/07/17 at 21:00 Carvedilol (Coreg) 6.25 mg BIDWMEALS PO Last administered on 04/10/17 17:28; Start 04/08/17 at 08:00 Cetirizine HCl (ZyrTEC) 10 mg PRN DAILY PRN PO ALLERGIES; Start 04/07/17 at 21: 00 Acetaminophen/ Hydrocodone Bitart (Lortab 5/325) 1 tab PRN Q4HRS PRN PO PAIN; Start 04/07/17 at 21:00 Loperamide HCl (Imodium) 2 mg PRN DAILY PRN PO loose stools; Start 04/07/17 at 21:00 Multivitamins/ Calcium (Thera-M Plus) 1 tab DAILY PO Last administered on 08:05; Start 04/08/17 at 09:00 Lorazepam (Ativan) 1 mg PRN TID PRN PO ANXIETY / AGITATION; Start 04/07/17 at 21:15 Risperidone (RisperDAL) 1 mg BID PO Last administered on 04/10/17 08:04; Start 04/07/17 at 21:30; Stop 04/10/17 at 10:42; Status DC Memantine (Namenda) 10 mg BID PO Last administered on 04/10/17 19:58; Start at 09:00 Venlafaxine HCl (Effexor Xr) 37.5 mg BID PO Last administered on 04/08/17 08: 25; Start 04/08/17 at 09:00; Stop 04/08/17 at 18:57; Status DC Acetaminophen (Tylenol) 650 mg PRN Q6HRS PRN PO PAIN / TEMP Last administered on 04/10/17 06:31; Start 04/07/17 at 21:15 Multi-Ingredient Ointment (Analgesic [place]) 1 lisa PRN QID PRN TP MUSCLE PAIN; Start 04/07/17 at 21:15 Al Hydroxide/Mg Hydroxide (Mylanta Plus Xs) 15 ml PRN AFTMEALHC PRN PO DYSPEPSIA; Start 04/07/17 at 21:15 Magnesium Hydroxide (Milk Of Magnesia) 2,400 mg PRN QHS PRN PO CONSTIPATION; Start 04/07/17 at 21:15 Nicotine (Nicoderm Cq 7mg) 1 patch DAILY TD Last administered on 04/10/17 08: 05; Start 04/08/17 at 09:00 Vitamin D (Vitamin D3) 50,000 unit WEEKLY PO Last administered on 04/09/17 08: 25; Start 04/09/17 at 09:00 Venlafaxine HCl (Effexor) 50 mg TID PO Last administered on 04/10/17 19:58; Start 04/08/17 at 19:00 Divalproex Sodium (Depakote Sprinkles) 250 mg HS PO Last administered on 19:58; Start 04/08/17 at 21:00 Risperidone (RisperDAL) 0.5 mg BID PO Last administered on 04/10/17 19:59; Start 04/10/17 at 21:00 Active Scripts Active Reported Venlafaxine Hcl Er (Venlafaxine Hcl) 225 Mg Tab.er.24 225 Mg PO DAILY [place] Bismuth (Bismuth Subsalicylate) 262 Mg/15 Ml Oral.susp 262 Mg PO PRN DAILY PRN Lorazepam 1 Mg Tablet 1 Mg PO PRN TID PRN Loperamide (Loperamide Hcl) 2 Mg Capsule 2 Mg PO PRN PRN Hydrocodone-Apap 5-325 (Hydrocodone Bit/Acetaminophen) 1 Each Tablet 1 Tab PO PRN Q4HRS PRN Cetirizine Hcl 10 Mg Tablet 10 Mg PO PRN DAILY PRN Risperdal (Risperidone) 1 Mg Tablet 1 Mg PO BID Atorvastatin Calcium 20 Mg Tablet 20 Mg PO QHS Carvedilol 6.25 Mg Tablet 6.25 Mg PO BIDWMEALS Venlafaxine Hcl Er (Venlafaxine Hcl) 75 Mg Cap.er.24h 75 Mg PO DAILY [place]-M (Multivits, W-Fe,Other Min) 1 Each Tablet 1 Each PO DAILY Namenda Xr (Memantine Hcl) 28 Mg Cap.spr.24 28 Mg PO DAILY Diagnosis: Problems: (1) Encounter for medical screening examination CRISTY SEWELL MD Apr 10, 2017 20:11
[2017-04-11 06:32] VITALS: BP 163/96
[2017-04-11] MEDS: MULTIVITAMIN with MINERAL TABLET. PO SCH (08:38)
[2017-04-11] MEDS: VENLAFAXINE 50 MG TABLET. PO SCH ×3 (08:38→19:51)
[2017-04-11] MEDS: risperiDONE 0.5 MG TABLET. PO SCH ×2 (08:38→19:51)
[2017-04-11] MEDS: MEMANTINE 10 MG TABLET. PO SCH ×2 (08:38→19:51)
[2017-04-11] MEDS: CARVEDILOL 6.25 MG TABLET PO SCH ×2 (08:39→17:15)
[2017-04-11] MEDS: NICOTINE 7MG PATCH. TD SCH (08:39)
[2017-04-11 15:55] VITALS: BP 135/83
[2017-04-11] MEDS: ATORVASTATIN CALCIUM 20 MG TABLET PO SCH (19:51)
[2017-04-11] MEDS: DIVALPROEX 125 MG CAP.SPRINK PO SCH (19:51)
--- NOTE | 2017-04-11 22:03 | PDOC ---
Exam Jose Demential Exam: Jose Note: Please also refer to the separate dictated note~for this date of service dictated separately.~Patient seen individually. Discussed the patient with Nursing staff reviewed the chart.~Reviewed interim history and current functioning. Reviewed vital signs,~Labs/ Radiology~and current medications noted below. Continue current treatment with the changes noted in the dictated addendum note Assessment: Vital Signs: Vital Signs Date Time Temp Pulse Resp B/P (MAP) Pulse Ox O2 Delivery O2 Flow Rate FiO2 04/11/17 17:15 77 135/83 04/11/17 15:55 97.4 18 97 04/07/17 22:40 Room Air I&O Intake and Output 04/11/17 07:00 Intake Total 840 ml Balance 840 ml Intake Oral 840 ml Current Medications: Meds: Current Medications Atorvastatin Calcium (Lipitor) 20 mg QHS PO Last administered on 04/11/17 19: 51; Start 04/07/17 at 21:00 Bismuth Subsalicylate (Pepto-Bismol) 262 mg PRN DAILY PRN PO GI SYMPTOMS; Start 04/07/17 at 21:00 Carvedilol (Coreg) 6.25 mg BIDWMEALS PO Last administered on 04/11/17 17:15; Start 04/08/17 at 08:00 Cetirizine HCl (ZyrTEC) 10 mg PRN DAILY PRN PO ALLERGIES; Start 04/07/17 at 21: 00 Acetaminophen/ Hydrocodone Bitart (Lortab 5/325) 1 tab PRN Q4HRS PRN PO PAIN; Start 04/07/17 at 21:00 Loperamide HCl (Imodium) 2 mg PRN DAILY PRN PO loose stools; Start 04/07/17 at 21:00 Multivitamins/ Calcium (Thera-M Plus) 1 tab DAILY PO Last administered on 08:38; Start 04/08/17 at 09:00 Lorazepam (Ativan) 1 mg PRN TID PRN PO ANXIETY / AGITATION; Start 04/07/17 at 21:15 Risperidone (RisperDAL) 1 mg BID PO Last administered on 04/10/17 08:04; Start 04/07/17 at 21:30; Stop 04/10/17 at 10:42; Status DC Memantine (Namenda) 10 mg BID PO Last administered on 04/11/17 19:51; Start at 09:00 Venlafaxine HCl (Effexor Xr) 37.5 mg BID PO Last administered on 04/08/17 08: 25; Start 04/08/17 at 09:00; Stop 04/08/17 at 18:57; Status DC Acetaminophen (Tylenol) 650 mg PRN Q6HRS PRN PO PAIN / TEMP Last administered on 04/10/17 06:31; Start 04/07/17 at 21:15 Multi-Ingredient Ointment (Analgesic [place]) 1 lisa PRN QID PRN TP MUSCLE PAIN; Start 04/07/17 at 21:15 Al Hydroxide/Mg Hydroxide (Mylanta Plus Xs) 15 ml PRN AFTMEALHC PRN PO DYSPEPSIA; Start 04/07/17 at 21:15 Magnesium Hydroxide (Milk Of Magnesia) 2,400 mg PRN QHS PRN PO CONSTIPATION; Start 04/07/17 at 21:15 Nicotine (Nicoderm Cq 7mg) 1 patch DAILY TD Last administered on 04/11/17 08: 39; Start 04/08/17 at 09:00 Vitamin D (Vitamin D3) 50,000 unit WEEKLY PO Last administered on 04/09/17 08: 25; Start 04/09/17 at 09:00 Venlafaxine HCl (Effexor) 50 mg TID PO Last administered on 04/11/17 19:51; Start 04/08/17 at 19:00 Divalproex Sodium (Depakote Sprinkles) 250 mg HS PO Last administered on 19:51; Start 04/08/17 at 21:00 Risperidone (RisperDAL) 0.5 mg BID PO Last administered on 04/11/17 19:51; Start 04/10/17 at 21:00 Active Scripts Active Reported Venlafaxine Hcl Er (Venlafaxine Hcl) 225 Mg Tab.er.24 225 Mg PO DAILY [place] Bismuth (Bismuth Subsalicylate) 262 Mg/15 Ml Oral.susp 262 Mg PO PRN DAILY PRN Lorazepam 1 Mg Tablet 1 Mg PO PRN TID PRN Loperamide (Loperamide Hcl) 2 Mg Capsule 2 Mg PO PRN PRN Hydrocodone-Apap 5-325 (Hydrocodone Bit/Acetaminophen) 1 Each Tablet 1 Tab PO PRN Q4HRS PRN Cetirizine Hcl 10 Mg Tablet 10 Mg PO PRN DAILY PRN Risperdal (Risperidone) 1 Mg Tablet 1 Mg PO BID Atorvastatin Calcium 20 Mg Tablet 20 Mg PO QHS Carvedilol 6.25 Mg Tablet 6.25 Mg PO BIDWMEALS Venlafaxine Hcl Er (Venlafaxine Hcl) 75 Mg Cap.er.24h 75 Mg PO DAILY [place]-M (Multivits,Th W-Fe,Other Min) 1 Each Tablet 1 Each PO DAILY Namenda Xr (Memantine Hcl) 28 Mg Cap.spr.24 28 Mg PO DAILY Diagnosis: Problems: (1) Encounter for medical screening examination CRISTY SEWELL MD Apr 11, 2017 22:03
--- NOTE | 2017-04-11 22:24 | PN ---
DATE: 04/10/2017 This note covers the elements not covered in my initial note. SUBJECTIVE: The patient was staffed at a treatment team meeting at length on the morning of 04/10/2017, seen individually on evening of 04/10/2017. The patient's brother, , attended the treatment team meeting. Reviewed history at length. One year ago the patient was driving, living alone by herself in [place]. Her change since then has been very marked. At times, she has had some intermittent hallucinations, anxious, restless. She has a history of binge eating and a prior history of bipolar disorder starting at age 27, which was treated outpatient on lithium and other medications. She then develops neurological symptoms thought to be secondary to multiple sclerosis, but cognition seemed to impair significantly in the past few months. In the past, she has had a history of "big mood changes," which have been worse for the past couple of weeks prior to this admission. She was diagnosed with Pick's disease at [facility], after the multiple sclerosis diagnosis could not be confirmed. She has also been an inpatient psychiatry at [facility] and we will get records from [place] and [facility]. REVIEW OF SYSTEMS: No CV, , pulmonary, eye, ENT system symptoms on review. Reliability poor. Brother states she readily recognizes all family members. MENTAL STATUS EXAM: Oriented to herself, pleasant, seems somewhat aphasic. Insight, judgment, recent and remote memory, attention, concentration, fund of knowledge poor, consistent with her diagnoses. IMPRESSION: Schizoaffective disorder, bipolar type, Pick's disease, frontotemporal dementia, major neurocognitive disorder, multifactorial secondary to frontotemporal changes Pick's disease, with delusion, depression, behavioral disturbance; anxiety disorder, unspecified; impulse control disorder, unspecified. PLAN: We will reduce Risperdal from 1 mg twice a day to 0.5 mg twice a day, get records as noted above. Continue Namenda XR 28 mg a day, Effexor 50 mg 3 times a day, Ativan p.r.n., Depakote Sprinkles 250 mg at bedtime. Follow labs level. Adjust further as clinically indicated. CRISTY SEWELL MD DR: MARIA GUADALUPE/michael JOB#: [id number] / [id number]
[2017-04-12 05:59] VITALS: BP 148/89
[2017-04-12 06:31] LABS: BASO # 0.2 x10^3/uL (0.0-0.2); BASO % 2 % (0-3); EOS # 0.1 x10^3/uL (0.0-0.7); EOS % 2 % (0-3); HEMATOCRIT 38.8 % (36.0-47.0); HEMOGLOBIN 12.9 g/dL (12.0-15.5); LYMPH % 24 % (24-48); MEAN CORPUSCULAR HEMOGLOBIN 31 pg (25-35); MEAN CORPUSCULAR HGB CONC 33 g/dL (31-37); MEAN CORPUSCULAR VOLUME 93 fL (79-100); MONO # 0.7 x10^3/uL (0.0-1.1); MONO % 9 % (0-9); NEUT # 5.4 x10^3uL (1.8-7.7); NEUT % 64 % (31-73); PLATELET COUNT 232 x10^3/uL (140-400); RED BLOOD COUNT 4.19 x10^6/uL (3.50-5.40); RED CELL DISTRIBUTION WIDTH 13.8 % (11.5-14.5); WHITE BLOOD COUNT 8.5 x10^3/uL (4.0-11.0)
[2017-04-12 06:58] LABS: ALBUMIN 3.1 g/dL (3.4-5.0); CALCIUM 8.7 mg/dL (8.5-10.1); CREATININE 1.2 mg/dL (0.6-1.0); POTASSIUM 4.2 mmol/L (3.5-5.1); TOTAL BILIRUBIN 0.3 mg/dL (0.2-1.0); TOTAL PROTEIN 6.3 g/dL (6.4-8.2)
[2017-04-12 06:59] LABS: VAL ACID 36 mcg/mL (50-100)
[2017-04-12] MEDS: CARVEDILOL 6.25 MG TABLET PO SCH ×3 (08:00→18:46)
[2017-04-12] MEDS: risperiDONE 0.5 MG TABLET. PO SCH ×3 (08:11→19:44)
[2017-04-12] MEDS: VENLAFAXINE 50 MG TABLET. PO SCH ×4 (08:11→19:44)
[2017-04-12] MEDS: NICOTINE 7MG PATCH. TD SCH (08:11)
[2017-04-12] MEDS: MULTIVITAMIN with MINERAL TABLET. PO SCH ×2 (08:11→09:00)
[2017-04-12] MEDS: MEMANTINE 10 MG TABLET. PO SCH ×3 (08:11→19:44)
[2017-04-12 08:44] LABS: PLT ESTIMATE ADEQUATE (ADEQUATE)
--- NOTE | 2017-04-12 10:33 | PN ---
DATE: 04/11/2017 This late entry of 04/11 covers elements not covered in my initial note. SUBJECTIVE: The patient was seen individually evening of 04/11/2017. She remains quite significant with the word salad. Compliant with her medication. We will be checking labs morning of 04/12/2017. Records are awaited from [facility], and [facility]. REVIEW OF SYSTEMS: No CV, , pulmonary, eye, ENT system symptoms on review. Receptive language skills appear a little better than expressive, but difficult to assess. MENTAL STATUS EXAM: Oriented to herself. Insight, judgment, recent memory is impaired. Language function intact. Attention span short. Mood and affect remain somewhat labile and anxious, intermittently psychotic. LABORATORY DATA: Reviewed. IMPRESSION: Major neurocognitive disorder, multifactorial, probably secondary to Pick's disease, frontotemporal dementia, history of schizoaffective disorder, bipolar type, mixed with psychotic features. PLAN: Continue Namenda, Effexor, Risperdal together with Depakote. Labs will be rechecked 04/12/2017 with the valproic acid level and adjust Depakote to reach therapeutic level. CRISTY SEWELL MD DR: MARIA GUADALUPE/michael JOB#: [id number] / [id number]
--- NOTE | 2017-04-12 11:52 | PDOC ---
Exam Jose Demential Exam: Jose Note: Please also refer to the separate dictated note~for this date of service dictated separately.~Patient seen individually. Discussed the patient with Nursing staff reviewed the chart.~Reviewed interim history and current functioning. Reviewed vital signs,~Labs/ Radiology~and current medications noted below. Continue current treatment with the changes noted in the dictated addendum note Assessment: Vital Signs: Vital Signs Date Time Temp Pulse Resp B/P (MAP) Pulse Ox O2 Delivery O2 Flow Rate FiO2 04/12/17 08:12 78 148/89 04/12/17 05:59 97.6 18 93 04/07/17 22:40 Room Air I&O Intake and Output 04/12/17 07:00 Intake Total 720 ml Balance 720 ml Intake Oral 720 ml Labs: Laboratory Tests Test 04/12/17 03:00 04/12/17 05:46 Valproic Acid Level 36 mcg/mL (50-100) L Valproic Acid Last Dose Date 04/11/17 Valproic Acid Last Dose Time 2100 White Blood Count 8.5 x10^3/uL (4.0-11.0) Red Blood Count 4.19 x10^6/uL (3.50-5.40) Hemoglobin 12.9 g/dL (12.0-15.5) Hematocrit 38.8 % (36.0-47.0) Mean Corpuscular Volume 93 fL (79-100) Mean Corpuscular Hemoglobin 31 pg (25-35) Mean Corpuscular Hemoglobin Concent 33 g/dL (31-37) Red Cell Distribution Width 13.8 % (11.5-14.5) Platelet Count 232 x10^3/uL (140-400) Neutrophils (%) (Auto) 64 % (31-73) Lymphocytes (%) (Auto) 24 % (24-48) Monocytes (%) (Auto) 9 % (0-9) Eosinophils (%) (Auto) 2 % (0-3) Basophils (%) (Auto) 2 % (0-3) Neutrophils # (Auto) 5.4 x10^3uL (1.8-7.7) Lymphocytes # (Auto) 2.0 x10^3/uL (1.0-4.8) Monocytes # (Auto) 0.7 x10^3/uL (0.0-1.1) Eosinophils # (Auto) 0.1 x10^3/uL (0.0-0.7) Basophils # (Auto) 0.2 x10^3/uL (0.0-0.2) Platelet Estimate Adequate (ADEQUATE) Sodium Level 139 mmol/L (136-145) Potassium Level 4.2 mmol/L (3.5-5.1) Chloride Level 107 mmol/L (98-107) Carbon Dioxide Level 28 mmol/L (21-32) Anion Gap 4 (6-14) L Blood Urea Nitrogen 21 mg/dL (7-20) H Creatinine 1.2 mg/dL (0.6-1.0) H Estimated GFR (Cockcroft-Gault) 46.0 BUN/Creatinine Ratio 18 (6-20) Glucose Level 102 mg/dL (70-99) H Calcium Level 8.7 mg/dL (8.5-10.1) Total Bilirubin 0.3 mg/dL (0.2-1.0) Aspartate Amino Transferase (AST) 31 U/L (15-37) Alanine Aminotransferase (ALT) 28 U/L (14-59) Alkaline Phosphatase 94 U/L (46-116) Total Protein 6.3 g/dL (6.4-8.2) L Albumin 3.1 g/dL (3.4-5.0) L Albumin/Globulin Ratio 1.0 (1.0-1.7) Current Medications: Meds: Current Medications Atorvastatin Calcium (Lipitor) 20 mg QHS PO Last administered on 04/11/17t 19: 51; Start 04/07/17 at 21:00 Bismuth Subsalicylate (Pepto-Bismol) 262 mg PRN DAILY PRN PO GI SYMPTOMS; Start 04/07/17 at 21:00 Carvedilol (Coreg) 6.25 mg BIDWMEALS PO Last administered on 04/12/17 08:12; Start 04/08/17 at 08:00 Cetirizine HCl (ZyrTEC) 10 mg PRN DAILY PRN PO ALLERGIES; Start 04/07/17 at 21: 00 Acetaminophen/ Hydrocodone Bitart (Lortab 5/325) 1 tab PRN Q4HRS PRN PO PAIN; Start 04/07/17 at 21:00 Loperamide HCl (Imodium) 2 mg PRN DAILY PRN PO loose stools; Start 04/07/17 at 21:00 Multivitamins/ Calcium (Thera-M Plus) 1 tab DAILY PO Last administered on 08:11; Start 04/08/17 at 09:00 Lorazepam (Ativan) 1 mg PRN TID PRN PO ANXIETY / AGITATION; Start 04/07/17 at 21:15 Risperidone (RisperDAL) 1 mg BID PO Last administered on 04/10/17 08:04; Start 04/07/17 at 21:30; Stop 04/10/17 at 10:42; Status DC Memantine (Namenda) 10 mg BID PO Last administered on 04/12/17 08:11; Start at 09:00 Venlafaxine HCl (Effexor Xr) 37.5 mg BID PO Last administered on 04/08/17 08: 25; Start 04/08/17 at 09:00; Stop 04/08/17 at 18:57; Status DC Acetaminophen (Tylenol) 650 mg PRN Q6HRS PRN PO PAIN / TEMP Last administered on 04/10/17 06:31; Start 04/07/17 at 21:15 Multi-Ingredient Ointment (Analgesic [place]) 1 lisa PRN QID PRN TP MUSCLE PAIN; Start 04/07/17 at 21:15 Al Hydroxide/Mg Hydroxide (Mylanta Plus Xs) 15 ml PRN AFTMEALHC PRN PO DYSPEPSIA; Start 04/07/17 at 21:15 Magnesium Hydroxide (Milk Of Magnesia) 2,400 mg PRN QHS PRN PO CONSTIPATION; Start 04/07/17 at 21:15 Nicotine (Nicoderm Cq 7mg) 1 patch DAILY TD Last administered on 04/12/17 08: 11; Start 04/08/17 at 09:00 Vitamin D (Vitamin D3) 50,000 unit WEEKLY PO Last administered on 04/09/17 08: 25; Start 04/09/17 at 09:00 Venlafaxine HCl (Effexor) 50 mg TID PO Last administered on 04/12/17 08:11; Start 04/08/17 at 19:00 Divalproex Sodium (Depakote Sprinkles) 250 mg HS PO Last administered on 19:51; Start 04/08/17 at 21:00 Risperidone (RisperDAL) 0.5 mg BID PO Last administered on 04/12/17 08:11; Start 04/10/17 at 21:00 Olanzapine (ZyPREXA ZYDIS) 2.5 mg PRN Q2HR PRN PO PSYCHOSIS; Start 04/12/17 at 09:00 Active Scripts Active Reported Venlafaxine Hcl Er (Venlafaxine Hcl) 225 Mg Tab.er.24 225 Mg PO DAILY [place] Bismuth (Bismuth Subsalicylate) 262 Mg/15 Ml Oral.susp 262 Mg PO PRN DAILY PRN Lorazepam 1 Mg Tablet 1 Mg PO PRN TID PRN Loperamide (Loperamide Hcl) 2 Mg Capsule 2 Mg PO PRN PRN Hydrocodone-Apap 5-325 (Hydrocodone Bit/Acetaminophen) 1 Each Tablet 1 Tab PO PRN Q4HRS PRN Cetirizine Hcl 10 Mg Tablet 10 Mg PO PRN DAILY PRN Risperdal (Risperidone) 1 Mg Tablet 1 Mg PO BID Atorvastatin Calcium 20 Mg Tablet 20 Mg PO QHS Carvedilol 6.25 Mg Tablet 6.25 Mg PO BIDWMEALS Venlafaxine Hcl Er (Venlafaxine Hcl) 75 Mg Cap.er.24h 75 Mg PO DAILY [place]-M (Multivits, W-,Other Min) 1 Each Tablet 1 Each PO DAILY Namenda Xr (Memantine Hcl) 28 Mg Cap.spr.24 28 Mg PO DAILY Diagnosis: Problems: (1) Encounter for medical screening examination CRISTY SEWELL MD Apr 12, 2017 11:52
[2017-04-12] MEDS: ATORVASTATIN CALCIUM 20 MG TABLET PO SCH (19:44)
[2017-04-12] MEDS: DIVALPROEX 125 MG CAP.SPRINK PO SCH (19:44)
[2017-04-13 06:06] VITALS: BP 157/84
[2017-04-13] MEDS: VENLAFAXINE 50 MG TABLET. PO SCH ×3 (08:00→20:17)
[2017-04-13] MEDS: MEMANTINE 10 MG TABLET. PO SCH ×2 (08:01→20:16)
[2017-04-13] MEDS: CARVEDILOL 6.25 MG TABLET PO SCH ×2 (08:01→17:05)
[2017-04-13] MEDS: risperiDONE 0.5 MG TABLET. PO SCH ×2 (08:01→20:16)
[2017-04-13] MEDS: MULTIVITAMIN with MINERAL TABLET. PO SCH (08:01)
[2017-04-13] MEDS: NICOTINE 7MG PATCH. TD SCH (08:02)
[2017-04-13] MEDS: DIVALPROEX 125 MG CAP.SPRINK PO SCH ×2 (08:03→20:16)
[2017-04-13 16:20] VITALS: BP 117/58
--- NOTE | 2017-04-13 20:00 | PDOC ---
Exam Jose Demential Exam: Jose Note: Please also refer to the separate dictated note~for this date of service dictated separately.~Patient seen individually. Discussed the patient with Nursing staff reviewed the chart.~Reviewed interim history and current functioning. Reviewed vital signs,~Labs/ Radiology~and current medications noted below. Continue current treatment with the changes noted in the dictated addendum note Assessment: Vital Signs: Vital Signs Date Time Temp Pulse Resp B/P (MAP) Pulse Ox O2 Delivery O2 Flow Rate FiO2 04/13/17 17:05 81 117/58 04/13/17 16:20 97.8 20 98 Room Air I&O Intake and Output 04/13/17 07:00 Intake Total 840 ml Balance 840 ml Intake Oral 840 ml Current Medications: Meds: Current Medications Atorvastatin Calcium (Lipitor) 20 mg QHS PO Last administered on 04/12/17 19: 44; Start 04/07/17 at 21:00 Bismuth Subsalicylate (Pepto-Bismol) 262 mg PRN DAILY PRN PO GI SYMPTOMS; Start 04/07/17 at 21:00 Carvedilol (Coreg) 6.25 mg BIDWMEALS PO Last administered on 04/13/17 17:05; Start 04/08/17 at 08:00 Cetirizine HCl (ZyrTEC) 10 mg PRN DAILY PRN PO ALLERGIES; Start 04/07/17 at 21: 00 Acetaminophen/ Hydrocodone Bitart (Lortab 5/325) 1 tab PRN Q4HRS PRN PO PAIN; Start 04/07/17 at 21:00 Loperamide HCl (Imodium) 2 mg PRN DAILY PRN PO loose stools; Start 04/07/17 at 21:00 Multivitamins/ Calcium (Thera-M Plus) 1 tab DAILY PO Last administered on 08:01; Start 04/08/17 at 09:00 Lorazepam (Ativan) 1 mg PRN TID PRN PO ANXIETY / AGITATION; Start 04/07/17 at 21:15 Risperidone (RisperDAL) 1 mg BID PO Last administered on 04/10/17 08:04; Start 04/07/17 at 21:30; Stop 04/10/17 at 10:42; Status DC Memantine (Namenda) 10 mg BID PO Last administered on 04/13/17 08:01; Start at 09:00 Venlafaxine HCl (Effexor Xr) 37.5 mg BID PO Last administered on 04/08/17 08: 25; Start 04/08/17 at 09:00; Stop 04/08/17 at 18:57; Status DC Acetaminophen (Tylenol) 650 mg PRN Q6HRS PRN PO PAIN / TEMP Last administered on 04/10/17 06:31; Start 04/07/17 at 21:15 Multi-Ingredient Ointment (Analgesic [place]) 1 lisa PRN QID PRN TP MUSCLE PAIN; Start 04/07/17 at 21:15 Al Hydroxide/Mg Hydroxide (Mylanta Plus Xs) 15 ml PRN AFTMEALHC PRN PO DYSPEPSIA; Start 04/07/17 at 21:15 Magnesium Hydroxide (Milk Of Magnesia) 2,400 mg PRN QHS PRN PO CONSTIPATION Last administered on 04/13/17 17:05; Start 04/07/17 at 21:15 Nicotine (Nicoderm Cq 7mg) 1 patch DAILY TD Last administered on 04/13/17 08: 02; Start 04/08/17 at 09:00 Vitamin D (Vitamin D3) 50,000 unit WEEKLY PO Last administered on 04/09/17 08: 25; Start 04/09/17 at 09:00 Venlafaxine HCl (Effexor) 50 mg TID PO Last administered on 04/13/17 14:12; Start 04/08/17 at 19:00 Divalproex Sodium (Depakote Sprinkles) 250 mg HS PO Last administered on 19:51; Start 04/08/17 at 21:00; Stop 04/12/17 at 19:12; Status DC Risperidone (RisperDAL) 0.5 mg BID PO Last administered on 04/13/17 08:01; Start 04/10/17 at 21:00 Olanzapine (ZyPREXA ZYDIS) 2.5 mg PRN Q2HR PRN PO PSYCHOSIS; Start 04/12/17 at 09:00 Divalproex Sodium (Depakote Sprinkles) 250 mg BID PO Last administered on 08:03; Start 04/12/17 at 21:00 Active Scripts Active Reported Venlafaxine Hcl Er (Venlafaxine Hcl) 225 Mg Tab.er.24 225 Mg PO DAILY [place] Bismuth (Bismuth Subsalicylate) 262 Mg/15 Ml Oral.susp 262 Mg PO PRN DAILY PRN Lorazepam 1 Mg Tablet 1 Mg PO PRN TID PRN Loperamide (Loperamide Hcl) 2 Mg Capsule 2 Mg PO PRN PRN Hydrocodone-Apap 5-325 (Hydrocodone Bit/Acetaminophen) 1 Each Tablet 1 Tab PO PRN Q4HRS PRN Cetirizine Hcl 10 Mg Tablet 10 Mg PO PRN DAILY PRN Risperdal (Risperidone) 1 Mg Tablet 1 Mg PO BID Atorvastatin Calcium 20 Mg Tablet 20 Mg PO QHS Carvedilol 6.25 Mg Tablet 6.25 Mg PO BIDWMEALS Venlafaxine Hcl Er (Venlafaxine Hcl) 75 Mg Cap.er.24h 75 Mg PO DAILY [place]-M (Multivits,Th W-Fe,Other Min) 1 Each Tablet 1 Each PO DAILY Namenda Xr (Memantine Hcl) 28 Mg Cap.spr.24 28 Mg PO DAILY Diagnosis: Problems: (1) Encounter for medical screening examination CRISTY SEWELL MD Apr 13, 2017 19:59
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
[2017-04-13] MEDS: ATORVASTATIN CALCIUM 20 MG TABLET PO SCH (20:16)
--- NOTE | 2017-04-13 23:01 | PN ---
DATE: 04/12/2017 This late entry for 04/12/2017 covers elements not covered in my initial note. SUBJECTIVE: I met with the patient evening of 04/12/2017. Per nursing report, the patient has been refusing medications. The nursing staff will contact the brother to talk to her on the telephone to encourage her to be compliant with her medications. She still seems to recognize family members. Valproic acid level is 36. Mood and affect remain somewhat labile. REVIEW OF SYSTEMS: No CV, , pulmonary, eye, ENT system symptoms on review. Reliability poor. MENTAL STATUS EXAM: Oriented to herself. Insight, judgment, recent and remote memory, attention, concentration, fund of knowledge poor, consistent with her diagnosis mentioned in my initial note. PLAN: Increase Depakote from 250 at bedtime to 250 b.i.d. Check labs level. Maintain the rest of the psychotropics at current dosage. CRISTY SEWELL MD DR: MARIA GUADALUPE/michael JOB#: [id number] / [id number]
[2017-04-14 06:37] VITALS: BP 154/69
[2017-04-14] MEDS: MULTIVITAMIN with MINERAL TABLET. PO SCH (08:45)
[2017-04-14] MEDS: risperiDONE 0.5 MG TABLET. PO SCH ×2 (08:45→19:36)
[2017-04-14] MEDS: DIVALPROEX 125 MG CAP.SPRINK PO SCH ×2 (08:45→19:36)
[2017-04-14] MEDS: VENLAFAXINE 50 MG TABLET. PO SCH ×3 (08:45→19:36)
[2017-04-14] MEDS: NICOTINE 7MG PATCH. TD SCH (08:45)
[2017-04-14] MEDS: MEMANTINE 10 MG TABLET. PO SCH ×2 (08:45→19:36)
[2017-04-14] MEDS: CARVEDILOL 6.25 MG TABLET PO SCH ×2 (08:46→17:23)
[2017-04-14 16:37] VITALS: BP 149/88
[2017-04-14] MEDS: ATORVASTATIN CALCIUM 20 MG TABLET PO SCH (19:35)
--- NOTE | 2017-04-14 19:52 | PDOC ---
Exam Jose Demential Exam: Jose Note: Please also refer to the separate dictated note~for this date of service dictated separately.~Patient seen individually. Discussed the patient with Nursing staff reviewed the chart.~Reviewed interim history and current functioning. Reviewed vital signs,~Labs/ Radiology~and current medications noted below. Continue current treatment with the changes noted in the dictated addendum note Assessment: Vital Signs: Vital Signs Date Time Temp Pulse Resp B/P (MAP) Pulse Ox O2 Delivery O2 Flow Rate FiO2 04/14/17 17:23 72 149/88 04/14/17 16:37 97.6 18 98 Room Air I&O Intake and Output 04/14/17 07:00 Intake Total 960 ml Balance 960 ml Intake Oral 960 ml # Bowel Movements 1 Current Medications: Meds: Current Medications Atorvastatin Calcium (Lipitor) 20 mg QHS PO Last administered on 04/14/17 19: 35; Start 04/07/17 at 21:00 Bismuth Subsalicylate (Pepto-Bismol) 262 mg PRN DAILY PRN PO GI SYMPTOMS; Start 04/07/17 at 21:00 Carvedilol (Coreg) 6.25 mg BIDWMEALS PO Last administered on 04/14/17 17:23; Start 04/08/17 at 08:00 Cetirizine HCl (ZyrTEC) 10 mg PRN DAILY PRN PO ALLERGIES; Start 04/07/17 at 21: 00 Acetaminophen/ Hydrocodone Bitart (Lortab 5/325) 1 tab PRN Q4HRS PRN PO PAIN; Start 04/07/17 at 21:00 Loperamide HCl (Imodium) 2 mg PRN DAILY PRN PO loose stools; Start 04/07/17 at 21:00 Multivitamins/ Calcium (Thera-M Plus) 1 tab DAILY PO Last administered on 08:45; Start 04/08/17 at 09:00 Lorazepam (Ativan) 1 mg PRN TID PRN PO ANXIETY / AGITATION; Start 04/07/17 at 21:15 Risperidone (RisperDAL) 1 mg BID PO Last administered on 04/10/17 08:04; Start 04/07/17 at 21:30; Stop 04/10/17 at 10:42; Status DC Memantine (Namenda) 10 mg BID PO Last administered on 04/14/17 19:36; Start at 09:00 Venlafaxine HCl (Effexor Xr) 37.5 mg BID PO Last administered on 04/08/17 08: 25; Start 04/08/17 at 09:00; Stop 04/08/17 at 18:57; Status DC Acetaminophen (Tylenol) 650 mg PRN Q6HRS PRN PO PAIN / TEMP Last administered on 04/10/17 06:31; Start 04/07/17 at 21:15 Multi-Ingredient Ointment (Analgesic [place]) 1 lisa PRN QID PRN TP MUSCLE PAIN; Start 04/07/17 at 21:15 Al Hydroxide/Mg Hydroxide (Mylanta Plus Xs) 15 ml PRN AFTMEALHC PRN PO DYSPEPSIA; Start 04/07/17 at 21:15 Magnesium Hydroxide (Milk Of Magnesia) 2,400 mg PRN QHS PRN PO CONSTIPATION Last administered on 04/13/17 17:05; Start 04/07/17 at 21:15 Nicotine (Nicoderm Cq 7mg) 1 patch DAILY TD Last administered on 04/14/17 08: 45; Start 04/08/17 at 09:00 Vitamin D (Vitamin D3) 50,000 unit WEEKLY PO Last administered on 04/09/17 08: 25; Start 04/09/17 at 09:00 Venlafaxine HCl (Effexor) 50 mg TID PO Last administered on 04/14/17 19:36; Start 04/08/17 at 19:00 Divalproex Sodium (Depakote Sprinkles) 250 mg HS PO Last administered on 19:51; Start 04/08/17 at 21:00; Stop 04/12/17 at 19:12; Status DC Risperidone (RisperDAL) 0.5 mg BID PO Last administered on 04/14/17 19:36; Start 04/10/17 at 21:00 Olanzapine (ZyPREXA ZYDIS) 2.5 mg PRN Q2HR PRN PO PSYCHOSIS; Start 04/12/17 at 09:00 Divalproex Sodium (Depakote Sprinkles) 250 mg BID PO Last administered on 19:36; Start 04/12/17 at 21:00 Active Scripts Active Reported Venlafaxine Hcl Er (Venlafaxine Hcl) 225 Mg Tab.er.24 225 Mg PO DAILY [place] Bismuth (Bismuth Subsalicylate) 262 Mg/15 Ml Oral.susp 262 Mg PO PRN DAILY PRN Lorazepam 1 Mg Tablet 1 Mg PO PRN TID PRN Loperamide (Loperamide Hcl) 2 Mg Capsule 2 Mg PO PRN PRN Hydrocodone-Apap 5-325 (Hydrocodone Bit/Acetaminophen) 1 Each Tablet 1 Tab PO PRN Q4HRS PRN Cetirizine Hcl 10 Mg Tablet 10 Mg PO PRN DAILY PRN Risperdal (Risperidone) 1 Mg Tablet 1 Mg PO BID Atorvastatin Calcium 20 Mg Tablet 20 Mg PO QHS Carvedilol 6.25 Mg Tablet 6.25 Mg PO BIDWMEALS Venlafaxine Hcl Er (Venlafaxine Hcl) 75 Mg Cap.er.24h 75 Mg PO DAILY [place]-M (Multivits, W-Fe,Other Min) 1 Each Tablet 1 Each PO DAILY Namenda Xr (Memantine Hcl) 28 Mg Cap.spr.24 28 Mg PO DAILY Diagnosis: Problems: (1) Encounter for medical screening examination CRISTY SEWELL MD Apr 14, 2017 19:52
--- NOTE | 2017-04-14 23:37 | PN ---
DATE: 04/13/2017 PSYCHIATRIC PROGRESS NOTE This is a late entry of 04/13/2017 covers elements not covered in my initial note. SUBJECTIVE: The patient remains confused, forgetful. Otherwise, pleasant, cooperative, takes her medications. REVIEW OF SYSTEMS: No CV, , pulmonary, eye, ENT system symptoms on review. Reliability poor. MENTAL STATUS EXAM: Oriented to herself. Insight, judgment, recent memory is impaired. Language function intact. Attention span short. Mood and affect somewhat anxious, labile at times. LABORATORY DATA: Reviewed. IMPRESSION: Schizoaffective disorder, bipolar type, mixed with psychotic features; major neurocognitive disorder, multifactorial, probably secondary to Pick's disease and frontotemporal dementia with delusion, depression, behavioral disturbance. PLAN: Continue Namenda 10 b.i.d., Effexor 50 t.i.d., Ativan p.r.n., Risperdal 0.5 b.i.d., Depakote Sprinkles 250 b.i.d. Depakote is being adjusted. Repeat labs on 04/15/2017. Make further adjustments as clinically indicated. MAN Julisa SEWELL MD DR: MARIA GUADALUPE/michael JOB#: [id number] / [id number]
[2017-04-15 06:59] VITALS: BP 179/96
[2017-04-15] MEDS: VENLAFAXINE 50 MG TABLET. PO SCH ×3 (08:04→19:56)
[2017-04-15] MEDS: MULTIVITAMIN with MINERAL TABLET. PO SCH (08:04)
[2017-04-15] MEDS: MEMANTINE 10 MG TABLET. PO SCH ×2 (08:04→19:56)
[2017-04-15] MEDS: DIVALPROEX 125 MG CAP.SPRINK PO SCH ×2 (08:05→19:57)
[2017-04-15] MEDS: risperiDONE 0.5 MG TABLET. PO SCH ×2 (08:05→19:57)
[2017-04-15] MEDS: CARVEDILOL 6.25 MG TABLET PO SCH ×2 (08:05→17:11)
[2017-04-15] MEDS: NICOTINE 7MG PATCH. TD SCH (08:05)
[2017-04-15 08:14] LABS: BASO % 1 % (0-3); EOS # 0.2 x10^3/uL (0.0-0.7); EOS % 3 % (0-3); HEMATOCRIT 40.7 % (36.0-47.0); HEMOGLOBIN 13.8 g/dL (12.0-15.5); LYMPH # 1.5 x10^3/uL (1.0-4.8); LYMPH % 21 % (24-48); MEAN CORPUSCULAR HEMOGLOBIN 31 pg (25-35); MEAN CORPUSCULAR HGB CONC 34 g/dL (31-37); MEAN CORPUSCULAR VOLUME 92 fL (79-100); MONO # 0.7 x10^3/uL (0.0-1.1); MONO % 10 % (0-9); NEUT % 66 % (31-73); PLATELET COUNT 252 x10^3/uL (140-400); RED BLOOD COUNT 4.45 x10^6/uL (3.50-5.40); RED CELL DISTRIBUTION WIDTH 13.6 % (11.5-14.5); WHITE BLOOD COUNT 7.4 x10^3/uL (4.0-11.0)
[2017-04-15 08:27] LABS: ALBUMIN 3.3 g/dL (3.4-5.0); ALBUMIN/GLOBULIN RATIO 0.9 (1.0-1.7); ALK PHOS 110 U/L (46-116); ALT (SGPT) 34 U/L (14-59); ANION GAP 6 (6-14); AST (SGOT) 36 U/L (15-37); BLOOD UREA NITROGEN 26 mg/dL (7-20); BUN/CREATININE RATIO 20 (6-20); CARBON DIOXIDE 32 mmol/L (21-32); CHLORIDE 105 mmol/L (98-107); CREATININE 1.3 mg/dL (0.6-1.0); GFR 41.9; GLUCOSE 102 mg/dL (70-99); POTASSIUM 4.5 mmol/L (3.5-5.1); SODIUM 143 mmol/L (136-145); TOTAL BILIRUBIN 0.4 mg/dL (0.2-1.0); TOTAL PROTEIN 6.9 g/dL (6.4-8.2)
[2017-04-15 08:30] LABS: VAL ACID 51 mcg/mL (50-100)
[2017-04-15 16:05] VITALS: BP 149/75
[2017-04-15] MEDS: ATORVASTATIN CALCIUM 20 MG TABLET PO SCH (19:57)
--- NOTE | 2017-04-15 19:57 | PDOC ---
Exam Jose Demential Exam: Jose Note: Please also refer to the separate dictated note~for this date of service dictated separately.~Patient seen individually. Discussed the patient with Nursing staff reviewed the chart.~Reviewed interim history and current functioning. Reviewed vital signs,~Labs/ Radiology~and current medications noted below. Continue current treatment with the changes noted in the dictated addendum note Assessment: Vital Signs: Vital Signs Date Time Temp Pulse Resp B/P (MAP) Pulse Ox O2 Delivery O2 Flow Rate FiO2 04/15/17 17:11 60 149/75 04/15/17 16:05 98.6 18 92 04/15/17 06:59 Room Air I&O Intake and Output 04/15/17 07:00 Intake Total 960 ml Balance 960 ml Intake Oral 960 ml Labs: Laboratory Tests Test 04/15/17 07:56 White Blood Count 7.4 x10^3/uL (4.0-11.0) Red Blood Count 4.45 x10^6/uL (3.50-5.40) Hemoglobin 13.8 g/dL (12.0-15.5) Hematocrit 40.7 % (36.0-47.0) Mean Corpuscular Volume 92 fL (79-100) Mean Corpuscular Hemoglobin 31 pg (25-35) Mean Corpuscular Hemoglobin Concent 34 g/dL (31-37) Red Cell Distribution Width 13.6 % (11.5-14.5) Platelet Count 252 x10^3/uL (140-400) Neutrophils (%) (Auto) 66 % (31-73) Lymphocytes (%) (Auto) 21 % (24-48) L Monocytes (%) (Auto) 10 % (0-9) H Eosinophils (%) (Auto) 3 % (0-3) Basophils (%) (Auto) 1 % (0-3) Neutrophils # (Auto) 5.0 x10^3uL (1.8-7.7) Lymphocytes # (Auto) 1.5 x10^3/uL (1.0-4.8) Monocytes # (Auto) 0.7 x10^3/uL (0.0-1.1) Eosinophils # (Auto) 0.2 x10^3/uL (0.0-0.7) Basophils # (Auto) 0.0 x10^3/uL (0.0-0.2) Sodium Level 143 mmol/L (136-145) Potassium Level 4.5 mmol/L (3.5-5.1) Chloride Level 105 mmol/L (98-107) Carbon Dioxide Level 32 mmol/L (21-32) Anion Gap 6 (6-14) Blood Urea Nitrogen 26 mg/dL (7-20) H Creatinine 1.3 mg/dL (0.6-1.0) H Estimated GFR (Cockcroft-Gault) 41.9 BUN/Creatinine Ratio 20 (6-20) Glucose Level 102 mg/dL (70-99) H Calcium Level 9.0 mg/dL (8.5-10.1) Total Bilirubin 0.4 mg/dL (0.2-1.0) Aspartate Amino Transferase (AST) 36 U/L (15-37) Alanine Aminotransferase (ALT) 34 U/L (14-59) Alkaline Phosphatase 110 U/L (46-116) Total Protein 6.9 g/dL (6.4-8.2) Albumin 3.3 g/dL (3.4-5.0) L Albumin/Globulin Ratio 0.9 (1.0-1.7) L Valproic Acid Level 51 mcg/mL (50-100) Valproic Acid Last Dose Date 04/14/17 Valproic Acid Last Dose Time 2100 Current Medications: Meds: Current Medications Atorvastatin Calcium (Lipitor) 20 mg QHS PO Last administered on 04/14/17 19: 35; Start 04/07/17 at 21:00 Bismuth Subsalicylate (Pepto-Bismol) 262 mg PRN DAILY PRN PO GI SYMPTOMS; Start 04/07/17 at 21:00 Carvedilol (Coreg) 6.25 mg BIDWMEALS PO Last administered on 04/15/17 17:11; Start 04/08/17 at 08:00 Cetirizine HCl (ZyrTEC) 10 mg PRN DAILY PRN PO ALLERGIES; Start 04/07/17 at 21: 00 Acetaminophen/ Hydrocodone Bitart (Lortab 5/325) 1 tab PRN Q4HRS PRN PO PAIN; Start 04/07/17 at 21:00 Loperamide HCl (Imodium) 2 mg PRN DAILY PRN PO loose stools; Start 04/07/17 at 21:00 Multivitamins/ Calcium (Thera-M Plus) 1 tab DAILY PO Last administered on 08:04; Start 04/08/17 at 09:00 Lorazepam (Ativan) 1 mg PRN TID PRN PO ANXIETY / AGITATION; Start 04/07/17 at 21:15 Risperidone (RisperDAL) 1 mg BID PO Last administered on 04/10/17 08:04; Start 04/07/17 at 21:30; Stop 04/10/17 at 10:42; Status DC Memantine (Namenda) 10 mg BID PO Last administered on 04/15/17 08:04; Start at 09:00 Venlafaxine HCl (Effexor Xr) 37.5 mg BID PO Last administered on 04/08/17 08: 25; Start 04/08/17 at 09:00; Stop 04/08/17 at 18:57; Status DC Acetaminophen (Tylenol) 650 mg PRN Q6HRS PRN PO PAIN / TEMP Last administered on 04/10/17 06:31; Start 04/07/17 at 21:15 Multi-Ingredient Ointment (Analgesic [place]) 1 lisa PRN QID PRN TP MUSCLE PAIN; Start 04/07/17 at 21:15 Al Hydroxide/Mg Hydroxide (Mylanta Plus Xs) 15 ml PRN AFTMEALHC PRN PO DYSPEPSIA; Start 04/07/17 at 21:15 Magnesium Hydroxide (Milk Of Magnesia) 2,400 mg PRN QHS PRN PO CONSTIPATION Last administered on 04/13/17 17:05; Start 04/07/17 at 21:15 Nicotine (Nicoderm Cq 7mg) 1 patch DAILY TD Last administered on 04/15/17 08: 05; Start 04/08/17 at 09:00 Vitamin D (Vitamin D3) 50,000 unit WEEKLY PO Last administered on 04/09/17 08: 25; Start 04/09/17 at 09:00 Venlafaxine HCl (Effexor) 50 mg TID PO Last administered on 04/15/17 14:17; Start 04/08/17 at 19:00 Divalproex Sodium (Depakote Sprinkles) 250 mg HS PO Last administered on 19:51; Start 04/08/17 at 21:00; Stop 04/12/17 at 19:12; Status DC Risperidone (RisperDAL) 0.5 mg BID PO Last administered on 04/15/17 08:05; Start 04/10/17 at 21:00 Olanzapine (ZyPREXA ZYDIS) 2.5 mg PRN Q2HR PRN PO PSYCHOSIS; Start 04/12/17 at 09:00 Divalproex Sodium (Depakote Sprinkles) 250 mg BID PO Last administered on 08:05; Start 04/12/17 at 21:00 Active Scripts Active Reported Venlafaxine Hcl Er (Venlafaxine Hcl) 225 Mg Tab.er.24 225 Mg PO DAILY [place] Bismuth (Bismuth Subsalicylate) 262 Mg/15 Ml Oral.susp 262 Mg PO PRN DAILY PRN Lorazepam 1 Mg Tablet 1 Mg PO PRN TID PRN Loperamide (Loperamide Hcl) 2 Mg Capsule 2 Mg PO PRN PRN Hydrocodone-Apap 5-325 (Hydrocodone Bit/Acetaminophen) 1 Each Tablet 1 Tab PO PRN Q4HRS PRN Cetirizine Hcl 10 Mg Tablet 10 Mg PO PRN DAILY PRN Risperdal (Risperidone) 1 Mg Tablet 1 Mg PO BID Atorvastatin Calcium 20 Mg Tablet 20 Mg PO QHS Carvedilol 6.25 Mg Tablet 6.25 Mg PO BIDWMEALS Venlafaxine Hcl Er (Venlafaxine Hcl) 75 Mg Cap.er.24h 75 Mg PO DAILY [place]-M (Multivits, W-Fe,Other Min) 1 Each Tablet 1 Each PO DAILY Namenda Xr (Memantine Hcl) 28 Mg Cap.spr.24 28 Mg PO DAILY Diagnosis: Problems: (1) Anxiety disorder (2) Impulse control disorder (3) Dementia, vascular, with depression (4) Dementia, vascular, with delusions (5) Dementia in Alzheimer's disease with depression (6) Dementia in Alzheimer's disease with delusions (7) Schizoaffective disorder (8) Bipolar affective disorder, mixed CRISTY SEWELL MD Apr 15, 2017 19:57
[2017-04-16 06:02] VITALS: BP 142/70
--- NOTE | 2017-04-16 06:44 | PN ---
DATE: 04/14/2017 PSYCHIATRIC PROGRESS NOTE This is a late entry of 04/14/2017 covers elements not covered in my initial note. SUBJECTIVE: I met with the patient evening of 04/14/2017. She slept 6-3/4 hours previous night. Per nursing report, she has been wandering intrusive, restless at times, disoriented. She recognized her brother who visited her before dinnertime compliant with medications. Valproic acid level to be checked on 04/15/2017 and then we will adjust the Depakote further. REVIEW OF SYSTEMS: No CV, , pulmonary, eye, ENT system symptoms on review. Reliability poor. After supper, she was trying to get into the television lounge area, banging on the doors since the door was shut. I did open the door for her. She seemed to appreciate it and was smiling. No CV, , pulmonary, eye, ENT system symptoms on review. MENTAL STATUS EXAM: Oriented to herself. Insight, judgment, recent memory is impaired. Language function intact, attention span short. Mood and affect still somewhat labile, but better than before. LABORATORY DATA: Reviewed. IMPRESSION: Unchanged from initial note including schizoaffective disorder, bipolar type, mixed with psychotic features; major neurocognitive disorder, Alzheimer, vascular, possibly Pick's disease frontotemporal with delusion, depression, behavioral disturbance. Rest unchanged. PLAN: Continue Namenda, Effexor, Ativan p.r.n., Risperdal 0.5 mg b.i.d., Depakote Sprinkles 250 b.i.d., Zyprexa p.r.n. Check labs level on 04/15/2017 and then adjust the Depakote to reach a therapeutic level. CRISTY SEWELL MD DR: MARIA GUADALUPE/michael JOB#: [id number] / [id number]
[2017-04-16] MEDS: VENLAFAXINE 50 MG TABLET. PO SCH ×3 (08:22→20:40)
[2017-04-16] MEDS: MULTIVITAMIN with MINERAL TABLET. PO SCH (08:23)
[2017-04-16] MEDS: risperiDONE 0.5 MG TABLET. PO SCH ×2 (08:23→20:40)
[2017-04-16] MEDS: CARVEDILOL 6.25 MG TABLET PO SCH ×2 (08:23→17:58)
[2017-04-16] MEDS: MEMANTINE 10 MG TABLET. PO SCH ×2 (08:23→20:40)
[2017-04-16] MEDS: NICOTINE 7MG PATCH. TD SCH (08:23)
[2017-04-16] MEDS: DIVALPROEX 125 MG CAP.SPRINK PO SCH ×2 (08:23→20:40)
[2017-04-16] MEDS: CHOLECALCIFEROL (VITAMIN D3) 50,000 UNIT CAPSULE PO SCH (08:26)
[2017-04-16 16:02] VITALS: BP 148/82
--- NOTE | 2017-04-16 19:59 | PDOC ---
Exam Jose Demential Exam: Jose Note: Please also refer to the separate dictated note~for this date of service dictated separately.~Patient seen individually. Discussed the patient with Nursing staff reviewed the chart.~Reviewed interim history and current functioning. Reviewed vital signs,~Labs/ Radiology~and current medications noted below. Continue current treatment with the changes noted in the dictated addendum note Assessment: Vital Signs: Vital Signs Date Time Temp Pulse Resp B/P (MAP) Pulse Ox O2 Delivery O2 Flow Rate FiO2 04/16/17 17:58 73 148/82 04/16/17 16:02 97.9 18 99 Room Air I&O Intake and Output 04/16/17 07:00 Intake Total 600 ml Balance 600 ml Intake Oral 600 ml # Bowel Movements 1 Current Medications: Meds: Current Medications Atorvastatin Calcium (Lipitor) 20 mg QHS PO Last administered on 04/15/17 19: 57; Start 04/07/17 at 21:00 Bismuth Subsalicylate (Pepto-Bismol) 262 mg PRN DAILY PRN PO GI SYMPTOMS; Start 04/07/17 at 21:00 Carvedilol (Coreg) 6.25 mg BIDWMEALS PO Last administered on 04/16/17 17:58; Start 04/08/17 at 08:00 Cetirizine HCl (ZyrTEC) 10 mg PRN DAILY PRN PO ALLERGIES; Start 04/07/17 at 21: 00 Acetaminophen/ Hydrocodone Bitart (Lortab 5/325) 1 tab PRN Q4HRS PRN PO PAIN; Start 04/07/17 at 21:00 Loperamide HCl (Imodium) 2 mg PRN DAILY PRN PO loose stools; Start 04/07/17 at 21:00 Multivitamins/ Calcium (Thera-M Plus) 1 tab DAILY PO Last administered on 08:23; Start 04/08/17 at 09:00 Lorazepam (Ativan) 1 mg PRN TID PRN PO ANXIETY / AGITATION; Start 04/07/17 at 21:15 Risperidone (RisperDAL) 1 mg BID PO Last administered on 04/10/17 08:04; Start 04/07/17 at 21:30; Stop 04/10/17 at 10:42; Status DC Memantine (Namenda) 10 mg BID PO Last administered on 04/16/17 08:23; Start at 09:00 Venlafaxine HCl (Effexor Xr) 37.5 mg BID PO Last administered on 04/08/17 08: 25; Start 04/08/17 at 09:00; Stop 04/08/17 at 18:57; Status DC Acetaminophen (Tylenol) 650 mg PRN Q6HRS PRN PO PAIN / TEMP Last administered on 04/10/17 06:31; Start 04/07/17 at 21:15 Multi-Ingredient Ointment (Analgesic [place]) 1 lisa PRN QID PRN TP MUSCLE PAIN; Start 04/07/17 at 21:15 Al Hydroxide/Mg Hydroxide (Mylanta Plus Xs) 15 ml PRN AFTMEALHC PRN PO DYSPEPSIA; Start 04/07/17 at 21:15 Magnesium Hydroxide (Milk Of Magnesia) 2,400 mg PRN QHS PRN PO CONSTIPATION Last administered on 04/13/17 17:05; Start 04/07/17 at 21:15 Nicotine (Nicoderm Cq 7mg) 1 patch DAILY TD Last administered on 04/16/17 08: 23; Start 04/08/17 at 09:00 Vitamin D (Vitamin D3) 50,000 unit WEEKLY PO Last administered on 04/16/17 08: 26; Start 04/09/17 at 09:00 Venlafaxine HCl (Effexor) 50 mg TID PO Last administered on 04/16/17 14:57; Start 04/08/17 at 19:00 Divalproex Sodium (Depakote Sprinkles) 250 mg HS PO Last administered on 19:51; Start 04/08/17 at 21:00; Stop 04/12/17 at 19:12; Status DC Risperidone (RisperDAL) 0.5 mg BID PO Last administered on 04/16/17 08:23; Start 04/10/17 at 21:00 Olanzapine (ZyPREXA ZYDIS) 2.5 mg PRN Q2HR PRN PO PSYCHOSIS; Start 04/12/17 at 09:00 Divalproex Sodium (Depakote Sprinkles) 250 mg BID PO Last administered on 08:23; Start 04/12/17 at 21:00 Active Scripts Active Reported Venlafaxine Hcl Er (Venlafaxine Hcl) 225 Mg Tab.er.24 225 Mg PO DAILY [place] Bismuth (Bismuth Subsalicylate) 262 Mg/15 Ml Oral.susp 262 Mg PO PRN DAILY PRN Lorazepam 1 Mg Tablet 1 Mg PO PRN TID PRN Loperamide (Loperamide Hcl) 2 Mg Capsule 2 Mg PO PRN PRN Hydrocodone-Apap 5-325 (Hydrocodone Bit/Acetaminophen) 1 Each Tablet 1 Tab PO PRN Q4HRS PRN Cetirizine Hcl 10 Mg Tablet 10 Mg PO PRN DAILY PRN Risperdal (Risperidone) 1 Mg Tablet 1 Mg PO BID Atorvastatin Calcium 20 Mg Tablet 20 Mg PO QHS Carvedilol 6.25 Mg Tablet 6.25 Mg PO BIDWMEALS Venlafaxine Hcl Er (Venlafaxine Hcl) 75 Mg Cap.er.24h 75 Mg PO DAILY [place]ms-M (Multivits, W-Fe,Other Min) 1 Each Tablet 1 Each PO DAILY Namenda Xr (Memantine Hcl) 28 Mg Cap.spr.24 28 Mg PO DAILY Diagnosis: Problems: (1) Anxiety disorder (2) Impulse control disorder (3) Dementia, vascular, with depression (4) Dementia, vascular, with delusions (5) Dementia in Alzheimer's disease with depression (6) Dementia in Alzheimer's disease with delusions (7) Schizoaffective disorder (8) Bipolar affective disorder, mixed CRISTY SEWELL MD Apr 16, 2017 19:59
[2017-04-16] MEDS: ATORVASTATIN CALCIUM 20 MG TABLET PO SCH (20:40)
--- NOTE | 2017-04-16 22:03 | PN ---
DATE: 04/15/2017 PSYCHIATRIC PROGRESS NOTE This is a late entry for 04/15/2017, covers elements not covered in my initial note. SUBJECTIVE: I met with the patient on the evening of 04/15/2017. The patient remains confused, calm, compliant, intrusive at times and wandering into the room of other patients, oblivious of what she is doing. REVIEW OF SYSTEMS: No CV, , pulmonary, eye, ENT system symptoms on review. Reliability poor. MENTAL STATUS EXAM: Oriented to herself. Insight, judgment, recent and remote memory, attention, concentration, fund of knowledge poor, consistent with her diagnosis. Valproic acid level therapeutic at 51. LABORATORY DATA: Reviewed. 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 PLAN: Continue current psychotropics including the Depakote level is therapeutic, may increase Risperdal or start BuSpar if agitation persists or worsens. MAN Julisa SEWELL MD DR: MARIA GUADALUPE/michael JOB#: [id number] / [id number]
[2017-04-17 05:49] VITALS: BP 145/88
[2017-04-17] MEDS: CARVEDILOL 6.25 MG TABLET PO SCH ×2 (10:10→16:56)
[2017-04-17] MEDS: VENLAFAXINE 50 MG TABLET. PO SCH (10:10)
[2017-04-17] MEDS: risperiDONE 0.5 MG TABLET. PO SCH ×2 (10:10→20:04)
[2017-04-17] MEDS: MULTIVITAMIN with MINERAL TABLET. PO SCH (10:10)
[2017-04-17] MEDS: MEMANTINE 10 MG TABLET. PO SCH ×2 (10:10→20:04)
[2017-04-17] MEDS: DIVALPROEX 125 MG CAP.SPRINK PO SCH ×2 (10:11→20:05)
[2017-04-17] MEDS: NICOTINE 7MG PATCH. TD SCH (10:16)
[2017-04-17 16:09] VITALS: BP 116/66
[2017-04-17] MEDS: busPIRone 5 MG TABLET. PO SCH (16:55)
--- NOTE | 2017-04-17 19:55 | PDOC ---
Exam Jose Demential Exam: Jose Note: Please also refer to the separate dictated note~for this date of service dictated separately.~Patient seen individually. Discussed the patient with Nursing staff reviewed the chart.~Reviewed interim history and current functioning. Reviewed vital signs,~Labs/ Radiology~and current medications noted below. Continue current treatment with the changes noted in the dictated addendum note Assessment: Vital Signs: Vital Signs Date Time Temp Pulse Resp B/P (MAP) Pulse Ox O2 Delivery O2 Flow Rate FiO2 04/17/17 16:56 84 116/66 04/17/17 16:09 98.5 16 96 04/17/17 05:49 Room Air I&O Intake and Output 04/17/17 07:00 Intake Total 960 ml Balance 960 ml Intake Oral 960 ml Current Medications: Meds: Current Medications Atorvastatin Calcium (Lipitor) 20 mg QHS PO Last administered on 04/16/17 20: 40; Start 04/07/17 at 21:00 Bismuth Subsalicylate (Pepto-Bismol) 262 mg PRN DAILY PRN PO GI SYMPTOMS; Start 04/07/17 at 21:00 Carvedilol (Coreg) 6.25 mg BIDWMEALS PO Last administered on 04/17/17 16:56; Start 04/08/17 at 08:00 Cetirizine HCl (ZyrTEC) 10 mg PRN DAILY PRN PO ALLERGIES; Start 04/07/17 at 21: 00 Acetaminophen/ Hydrocodone Bitart (Lortab 5/325) 1 tab PRN Q4HRS PRN PO PAIN; Start 04/07/17 at 21:00 Loperamide HCl (Imodium) 2 mg PRN DAILY PRN PO loose stools; Start 04/07/17 at 21:00 Multivitamins/ Calcium (Thera-M Plus) 1 tab DAILY PO Last administered on 10:10; Start 04/08/17 at 09:00 Lorazepam (Ativan) 1 mg PRN TID PRN PO ANXIETY / AGITATION Last administered on 04/16/17 23:11; Start 04/07/17 at 21:15 Risperidone (RisperDAL) 1 mg BID PO Last administered on 04/10/17 08:04; Start 04/07/17 at 21:30; Stop 04/10/17 at 10:42; Status DC Memantine (Namenda) 10 mg BID PO Last administered on 04/17/17 10:10; Start at 09:00 Venlafaxine HCl (Effexor Xr) 37.5 mg BID PO Last administered on 04/08/17 08: 25; Start 04/08/17 at 09:00; Stop 04/08/17 at 18:57; Status DC Acetaminophen (Tylenol) 650 mg PRN Q6HRS PRN PO PAIN / TEMP Last administered on 04/10/17 06:31; Start 04/07/17 at 21:15 Multi-Ingredient Ointment (Analgesic [place]) 1 lisa PRN QID PRN TP MUSCLE PAIN; Start 04/07/17 at 21:15 Al Hydroxide/Mg Hydroxide (Mylanta Plus Xs) 15 ml PRN AFTMEALHC PRN PO DYSPEPSIA; Start 04/07/17 at 21:15 Magnesium Hydroxide (Milk Of Magnesia) 2,400 mg PRN QHS PRN PO CONSTIPATION Last administered on 04/13/17 17:05; Start 04/07/17 at 21:15 Nicotine (Nicoderm Cq 7mg) 1 patch DAILY TD Last administered on 04/17/17 10: 16; Start 04/08/17 at 09:00 Vitamin D (Vitamin D3) 50,000 unit WEEKLY PO Last administered on 04/16/17 08: 26; Start 04/09/17 at 09:00 Venlafaxine HCl (Effexor) 50 mg TID PO Last administered on 04/17/17 10:10; Start 04/08/17 at 19:00; Stop 04/17/17 at 10:47; Status DC Divalproex Sodium (Depakote Sprinkles) 250 mg HS PO Last administered on 19:51; Start 04/08/17 at 21:00; Stop 04/12/17 at 19:12; Status DC Risperidone (RisperDAL) 0.5 mg BID PO Last administered on 04/17/17 10:10; Start 04/10/17 at 21:00 Olanzapine (ZyPREXA ZYDIS) 2.5 mg PRN Q2HR PRN PO PSYCHOSIS; Start 04/12/17 at 09:00 Divalproex Sodium (Depakote Sprinkles) 250 mg BID PO Last administered on 10:11; Start 04/12/17 at 21:00; Stop 04/17/17 at 15:17; Status DC Buspirone HCl (Buspar) 5 mg BID92 PO Last administered on 04/17/17 16:55; Start 04/17/17 at 14:00 Duloxetine HCl (Cymbalta) 30 mg DAILY PO ; Start 04/18/17 at 09:00; Stop at 09:01 Duloxetine HCl (Cymbalta) 60 mg DAILY PO ; Start 04/21/17 at 09:00 Divalproex Sodium (Depakote Sprinkles) 375 mg BID PO ; Start 04/17/17 at 21:00 Active Scripts Active Reported Venlafaxine Hcl Er (Venlafaxine Hcl) 225 Mg Tab.er.24 225 Mg PO DAILY [place] Bismuth (Bismuth Subsalicylate) 262 Mg/15 Ml Oral.susp 262 Mg PO PRN DAILY PRN Lorazepam 1 Mg Tablet 1 Mg PO PRN TID PRN Loperamide (Loperamide Hcl) 2 Mg Capsule 2 Mg PO PRN PRN Hydrocodone-Apap 5-325 (Hydrocodone Bit/Acetaminophen) 1 Each Tablet 1 Tab PO PRN Q4HRS PRN Cetirizine Hcl 10 Mg Tablet 10 Mg PO PRN DAILY PRN Risperdal (Risperidone) 1 Mg Tablet 1 Mg PO BID Atorvastatin Calcium 20 Mg Tablet 20 Mg PO QHS Carvedilol 6.25 Mg Tablet 6.25 Mg PO BIDWMEALS Venlafaxine Hcl Er (Venlafaxine Hcl) 75 Mg Cap.er.24h 75 Mg PO DAILY Therems-M (Multivits,Th W-Fe,Other Min) 1 Each Tablet 1 Each PO DAILY Namenda Xr (Memantine Hcl) 28 Mg Cap.spr.24 28 Mg PO DAILY Diagnosis: Problems: (1) Anxiety disorder (2) Impulse control disorder (3) Dementia, vascular, with depression (4) Dementia, vascular, with delusions (5) Dementia in Alzheimer's disease with depression (6) Dementia in Alzheimer's disease with delusions (7) Schizoaffective disorder (8) Bipolar affective disorder, mixed CRISTY SEWELL MD Apr 17, 2017 19:55
[2017-04-17] MEDS: ATORVASTATIN CALCIUM 20 MG TABLET PO SCH (20:04)
--- NOTE | 2017-04-17 23:42 | PN ---
DATE: 04/16/2017 This is a late entry 04/16/2017, covers the elements not covered in my initial note. SUBJECTIVE: I met with the patient in the evening of 04/16/2017. She remains confused, calm, cooperative, compliant with medications and cares. Her brother believes she recognizes family, the staff, and not sure of this. REVIEW OF SYSTEMS: No CV, , pulmonary, eye, ENT system symptoms on review. MENTAL STATUS EXAM: Oriented to herself. Insight, judgment, recent and remote memory, attention, concentration, fund of knowledge poor, consistent with her diagnosis as mentioned in my initial note. LABORATORY DATA: Reviewed. 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 Rest unchanged. PLAN: Continue current psychotropics, Namenda, Effexor, Risperdal, Ativan p.r.n., Depakote, which we will adjust if needed to higher therapeutic levels since current level is 51. CRISTY SEWELL MD DR: MARIA GUADALUPE/michael JOB#: [id number] / [id number]
[2017-04-18 06:15] VITALS: BP 174/86
[2017-04-18] MEDS: MEMANTINE 10 MG TABLET. PO SCH ×2 (09:23→19:43)
[2017-04-18] MEDS: busPIRone 5 MG TABLET. PO SCH ×2 (09:23→15:05)
[2017-04-18] MEDS: risperiDONE 0.5 MG TABLET. PO SCH ×2 (09:23→19:44)
[2017-04-18] MEDS: MULTIVITAMIN with MINERAL TABLET. PO SCH (09:23)
[2017-04-18] MEDS: DIVALPROEX 125 MG CAP.SPRINK PO SCH ×2 (09:24→19:43)
[2017-04-18] MEDS: NICOTINE 7MG PATCH. TD SCH (09:24)
[2017-04-18] MEDS: CARVEDILOL 6.25 MG TABLET PO SCH ×2 (09:24→17:32)
[2017-04-18] MEDS: DULoxetine HCL 30 MG CAPSULE.DR PO SCH (09:25)
[2017-04-18 16:18] VITALS: BP 139/94
[2017-04-18] MEDS: ATORVASTATIN CALCIUM 20 MG TABLET PO SCH (19:43)
--- NOTE | 2017-04-18 21:34 | PDOC ---
Exam Jose Demential Exam: Jose Note: Please also refer to the separate dictated note~for this date of service dictated separately.~Patient seen individually. Discussed the patient with Nursing staff reviewed the chart.~Reviewed interim history and current functioning. Reviewed vital signs,~Labs/ Radiology~and current medications noted below. Continue current treatment with the changes noted in the dictated addendum note Assessment: Vital Signs: Vital Signs Date Time Temp Pulse Resp B/P (MAP) Pulse Ox O2 Delivery O2 Flow Rate FiO2 04/18/17 17:32 96 139/94 04/18/17 16:18 97.0 18 99 04/17/17 05:49 Room Air I&O Intake and Output 04/18/17 07:00 Intake Total 600 ml Balance 600 ml Intake Oral 600 ml # Bowel Movements 1 Current Medications: Meds: Current Medications Atorvastatin Calcium (Lipitor) 20 mg QHS PO Last administered on 04/18/17 19: 43; Start 04/07/17 at 21:00 Bismuth Subsalicylate (Pepto-Bismol) 262 mg PRN DAILY PRN PO GI SYMPTOMS; Start 04/07/17 at 21:00 Carvedilol (Coreg) 6.25 mg BIDWMEALS PO Last administered on 04/18/17 17:32; Start 04/08/17 at 08:00 Cetirizine HCl (ZyrTEC) 10 mg PRN DAILY PRN PO ALLERGIES; Start 04/07/17 at 21: 00 Acetaminophen/ Hydrocodone Bitart (Lortab 5/325) 1 tab PRN Q4HRS PRN PO PAIN; Start 04/07/17 at 21:00 Loperamide HCl (Imodium) 2 mg PRN DAILY PRN PO loose stools; Start 04/07/17 at 21:00 Multivitamins/ Calcium (Thera-M Plus) 1 tab DAILY PO Last administered on 09:23; Start 04/08/17 at 09:00 Lorazepam (Ativan) 1 mg PRN TID PRN PO ANXIETY / AGITATION Last administered on 04/16/17 23:11; Start 04/07/17 at 21:15 Risperidone (RisperDAL) 1 mg BID PO Last administered on 04/10/17 08:04; Start 04/07/17 at 21:30; Stop 04/10/17 at 10:42; Status DC Memantine (Namenda) 10 mg BID PO Last administered on 04/18/17 19:43; Start at 09:00 Venlafaxine HCl (Effexor Xr) 37.5 mg BID PO Last administered on 04/08/17 08: 25; Start 04/08/17 at 09:00; Stop 04/08/17 at 18:57; Status DC Acetaminophen (Tylenol) 650 mg PRN Q6HRS PRN PO PAIN / TEMP Last administered on 04/10/17 06:31; Start 04/07/17 at 21:15 Multi-Ingredient Ointment (Analgesic [place]) 1 lisa PRN QID PRN TP MUSCLE PAIN; Start 04/07/17 at 21:15 Al Hydroxide/Mg Hydroxide (Mylanta Plus Xs) 15 ml PRN AFTMEALHC PRN PO DYSPEPSIA; Start 04/07/17 at 21:15 Magnesium Hydroxide (Milk Of Magnesia) 2,400 mg PRN QHS PRN PO CONSTIPATION Last administered on 04/13/17 17:05; Start 04/07/17 at 21:15 Nicotine (Nicoderm Cq 7mg) 1 patch DAILY TD Last administered on 04/18/17 09: 24; Start 04/08/17 at 09:00 Vitamin D (Vitamin D3) 50,000 unit WEEKLY PO Last administered on 04/16/17 08: 26; Start 04/09/17 at 09:00 Venlafaxine HCl (Effexor) 50 mg TID PO Last administered on 04/17/17 10:10; Start 04/08/17 at 19:00; Stop 04/17/17 at 10:47; Status DC Divalproex Sodium (Depakote Sprinkles) 250 mg HS PO Last administered on 19:51; Start 04/08/17 at 21:00; Stop 04/12/17 at 19:12; Status DC Risperidone (RisperDAL) 0.5 mg BID PO Last administered on 04/18/17 19:44; Start 04/10/17 at 21:00 Olanzapine (ZyPREXA ZYDIS) 2.5 mg PRN Q2HR PRN PO PSYCHOSIS; Start 04/12/17 at 09:00 Divalproex Sodium (Depakote Sprinkles) 250 mg BID PO Last administered on 10:11; Start 04/12/17 at 21:00; Stop 04/17/17 at 15:17; Status DC Buspirone HCl (Buspar) 5 mg BID92 PO Last administered on 04/18/17 15:05; Start 04/17/17 at 14:00 Duloxetine HCl (Cymbalta) 30 mg DAILY PO Last administered on 04/18/17 09:25; Start 04/18/17 at 09:00; Stop 04/20/17 at 09:01 Duloxetine HCl (Cymbalta) 60 mg DAILY PO ; Start 04/21/17 at 09:00 Divalproex Sodium (Depakote Sprinkles) 375 mg BID PO Last administered on 19:43; Start 04/17/17 at 21:00 Active Scripts Active Reported Venlafaxine Hcl Er (Venlafaxine Hcl) 225 Mg Tab.er.24 225 Mg PO DAILY [place] Bismuth (Bismuth Subsalicylate) 262 Mg/15 Ml Oral.susp 262 Mg PO PRN DAILY PRN Lorazepam 1 Mg Tablet 1 Mg PO PRN TID PRN Loperamide (Loperamide Hcl) 2 Mg Capsule 2 Mg PO PRN PRN Hydrocodone-Apap 5-325 (Hydrocodone Bit/Acetaminophen) 1 Each Tablet 1 Tab PO PRN Q4HRS PRN Cetirizine Hcl 10 Mg Tablet 10 Mg PO PRN DAILY PRN Risperdal (Risperidone) 1 Mg Tablet 1 Mg PO BID Atorvastatin Calcium 20 Mg Tablet 20 Mg PO QHS Carvedilol 6.25 Mg Tablet 6.25 Mg PO BIDWMEALS Venlafaxine Hcl Er (Venlafaxine Hcl) 75 Mg Cap.er.24h 75 Mg PO DAILY [place]ms-M (Multivits, W-Fe,Other Min) 1 Each Tablet 1 Each PO DAILY Namenda Xr (Memantine Hcl) 28 Mg Cap.spr.24 28 Mg PO DAILY Diagnosis: Problems: (1) Anxiety disorder (2) Impulse control disorder (3) Dementia, vascular, with depression (4) Dementia, vascular, with delusions (5) Dementia in Alzheimer's disease with depression (6) Dementia in Alzheimer's disease with delusions (7) Schizoaffective disorder (8) Bipolar affective disorder, mixed CRISTY SEWELL MD Apr 18, 2017 21:34
--- NOTE | 2017-04-19 00:47 | PN ---
DATE: 04/17/2017 PSYCHIATRIC PROGRESS NOTE This is a late entry of 04/17/2017 covers elements not covered in my initial note. SUBJECTIVE: The patient staffed at treatment team meeting with the entire team morning of 04/17/2017 seen individually evening of 04/17/2017. During the treatment team meeting reviewed the patient's history, diagnosis, current medications, discharge, and transition plans. Appetite 70%, sleeping about 7 hours. No CV, , pulmonary, eye, ENT system symptoms on review. Reliability poor. She remains confused, compliant, family feels her primary diagnosis is bipolar disorder and to minimize the dementia though nursing staff observations and indicates significant confusion, memory deficits. The previous evening she was agitated. She pained staff member at the door at night, slept at 2:00 a.m. REVIEW OF SYSTEMS: No CV, , eye, ENT or pulmonary system symptoms on review. MENTAL STATUS EXAM: Oriented to herself. Insight, judgment, recent and remote memory, attention, concentration, fund of knowledge poor, consistent with her diagnosis. IMPRESSION: Schizoaffective disorder bipolar type mixed with psychotic features; major neurocognitive disorder, Pick's frontotemporal with delusion, depression, behavioral disturbance. Rest unchanged. PLAN: Valproic acid level is 51. We will increase the Depakote Sprinkles from 250 b.i.d. to 375 b.i.d. Check labs level in 3 days to attempt to reach a higher therapeutic level to cover for the schizoaffective disorder. Change Effexor to Cymbalta 30 mg a day for 3 days and 60 mg a day, start BuSpar 5 mg b.i.d. Maintain Risperdal 0.5 b.i.d., Zyprexa p.r.n., Ativan p.r.n., Namenda 10 b.i.d. Adjust further as clinically indicated. CRISTY SEWELL MD DR: MARIA GUADALUPE/michael JOB#: [id number] / [id number]
[2017-04-19 06:03] VITALS: BP 167/83
[2017-04-19] MEDS: MULTIVITAMIN with MINERAL TABLET. PO SCH (08:43)
[2017-04-19] MEDS: busPIRone 5 MG TABLET. PO SCH ×3 (08:43→14:33)
[2017-04-19] MEDS: DULoxetine HCL 30 MG CAPSULE.DR PO SCH (08:43)
[2017-04-19] MEDS: CARVEDILOL 6.25 MG TABLET PO SCH ×2 (08:43→17:20)
[2017-04-19] MEDS: NICOTINE 7MG PATCH. TD SCH (08:44)
[2017-04-19] MEDS: risperiDONE 0.5 MG TABLET. PO SCH ×2 (08:44→19:19)
[2017-04-19] MEDS: DIVALPROEX 125 MG CAP.SPRINK PO SCH ×2 (08:44→19:19)
[2017-04-19] MEDS: MEMANTINE 10 MG TABLET. PO SCH ×2 (08:44→19:19)
[2017-04-19 15:51] VITALS: BP 158/87
--- NOTE | 2017-04-19 18:22 | PN ---
DATE: 04/18/2017 PSYCHIATRIC PROGRESS NOTE This is a late entry of 04/18/2017 covers elements not covered in my initial note. SUBJECTIVE: The patient was seen individually evening of 04/18/2017. She remains pleasantly confused, but family feels she recognizes everyone less confused and what it appears to us on the unit. Cousin came to visit her. REVIEW OF SYSTEMS: No CV, , pulmonary, eye, ENT system symptoms on review. MENTAL STATUS EXAM: Oriented to herself. Insight, judgment, recent and remote memory, attention, concentration, fund of knowledge poor, consistent with ____ mentioned in my initial note. PLAN: Continue current psychotropics. Valproic acid level was 51. We will repeat labs on 04/20/2017 Adjust as clinically indicated. MAN Julisa SEWELL MD DR: MARIA GUADALUPE/michael JOB#: [id number] / [id number]
[2017-04-19] MEDS: ATORVASTATIN CALCIUM 20 MG TABLET PO SCH (19:19)
--- NOTE | 2017-04-19 21:41 | PDOC ---
Exam Jose Demential Exam: Jose Note: Please also refer to the separate dictated note~for this date of service dictated separately.~Patient seen individually. Discussed the patient with Nursing staff reviewed the chart.~Reviewed interim history and current functioning. Reviewed vital signs,~Labs/ Radiology~and current medications noted below. Continue current treatment with the changes noted in the dictated addendum note Assessment: Vital Signs: Vital Signs Date Time Temp Pulse Resp B/P (MAP) Pulse Ox O2 Delivery O2 Flow Rate FiO2 04/19/17 17:20 91 158/87 04/19/17 15:51 97.9 19 95 04/17/17 05:49 Room Air I&O Intake and Output 04/19/17 07:00 Intake Total 600 ml Balance 600 ml Intake Oral 600 ml Current Medications: Meds: Current Medications Atorvastatin Calcium (Lipitor) 20 mg QHS PO Last administered on 04/19/17 19: 19; Start 04/07/17 at 21:00 Bismuth Subsalicylate (Pepto-Bismol) 262 mg PRN DAILY PRN PO GI SYMPTOMS; Start 04/07/17 at 21:00 Carvedilol (Coreg) 6.25 mg BIDWMEALS PO Last administered on 04/19/17 17:20; Start 04/08/17 at 08:00 Cetirizine HCl (ZyrTEC) 10 mg PRN DAILY PRN PO ALLERGIES; Start 04/07/17 at 21: 00 Acetaminophen/ Hydrocodone Bitart (Lortab 5/325) 1 tab PRN Q4HRS PRN PO PAIN; Start 04/07/17 at 21:00 Loperamide HCl (Imodium) 2 mg PRN DAILY PRN PO loose stools; Start 04/07/17 at 21:00 Multivitamins/ Calcium (Thera-M Plus) 1 tab DAILY PO Last administered on 08:43; Start 04/08/17 at 09:00 Lorazepam (Ativan) 1 mg PRN TID PRN PO ANXIETY / AGITATION Last administered on 04/16/17 23:11; Start 04/07/17 at 21:15 Risperidone (RisperDAL) 1 mg BID PO Last administered on 04/10/17 08:04; Start 04/07/17 at 21:30; Stop 04/10/17 at 10:42; Status DC Memantine (Namenda) 10 mg BID PO Last administered on 04/19/17 19:19; Start at 09:00 Venlafaxine HCl (Effexor Xr) 37.5 mg BID PO Last administered on 04/08/17 08: 25; Start 04/08/17 at 09:00; Stop 04/08/17 at 18:57; Status DC Acetaminophen (Tylenol) 650 mg PRN Q6HRS PRN PO PAIN / TEMP Last administered on 04/10/17 06:31; Start 04/07/17 at 21:15 Multi-Ingredient Ointment (Analgesic [place]) 1 lisa PRN QID PRN TP MUSCLE PAIN; Start 04/07/17 at 21:15 Al Hydroxide/Mg Hydroxide (Mylanta Plus Xs) 15 ml PRN AFTMEALHC PRN PO DYSPEPSIA; Start 04/07/17 at 21:15 Magnesium Hydroxide (Milk Of Magnesia) 2,400 mg PRN QHS PRN PO CONSTIPATION Last administered on 04/13/17 17:05; Start 04/07/17 at 21:15 Nicotine (Nicoderm Cq 7mg) 1 patch DAILY TD Last administered on 04/19/17 08: 44; Start 04/08/17 at 09:00 Vitamin D (Vitamin D3) 50,000 unit WEEKLY PO Last administered on 04/16/17 08: 26; Start 04/09/17 at 09:00 Venlafaxine HCl (Effexor) 50 mg TID PO Last administered on 04/17/17 10:10; Start 04/08/17 at 19:00; Stop 04/17/17 at 10:47; Status DC Divalproex Sodium (Depakote Sprinkles) 250 mg HS PO Last administered on 19:51; Start 04/08/17 at 21:00; Stop 04/12/17 at 19:12; Status DC Risperidone (RisperDAL) 0.5 mg BID PO Last administered on 04/19/17 19:19; Start 04/10/17 at 21:00 Olanzapine (ZyPREXA ZYDIS) 2.5 mg PRN Q2HR PRN PO PSYCHOSIS; Start 04/12/17 at 09:00 Divalproex Sodium (Depakote Sprinkles) 250 mg BID PO Last administered on 10:11; Start 04/12/17 at 21:00; Stop 04/17/17 at 15:17; Status DC Buspirone HCl (Buspar) 5 mg BID92 PO Last administered on 04/19/17 08:43; Start 04/17/17 at 14:00 Duloxetine HCl (Cymbalta) 30 mg DAILY PO Last administered on 04/19/17 08:43; Start 04/18/17 at 09:00; Stop 04/20/17 at 09:01 Duloxetine HCl (Cymbalta) 60 mg DAILY PO ; Start 04/21/17 at 09:00 Divalproex Sodium (Depakote Sprinkles) 375 mg BID PO Last administered on 19:19; Start 04/17/17 at 21:00 Active Scripts Active Reported Venlafaxine Hcl Er (Venlafaxine Hcl) 225 Mg Tab.er.24 225 Mg PO DAILY [place] Bismuth (Bismuth Subsalicylate) 262 Mg/15 Ml Oral.susp 262 Mg PO PRN DAILY PRN Lorazepam 1 Mg Tablet 1 Mg PO PRN TID PRN Loperamide (Loperamide Hcl) 2 Mg Capsule 2 Mg PO PRN PRN Hydrocodone-Apap 5-325 (Hydrocodone Bit/Acetaminophen) 1 Each Tablet 1 Tab PO PRN Q4HRS PRN Cetirizine Hcl 10 Mg Tablet 10 Mg PO PRN DAILY PRN Risperdal (Risperidone) 1 Mg Tablet 1 Mg PO BID Atorvastatin Calcium 20 Mg Tablet 20 Mg PO QHS Carvedilol 6.25 Mg Tablet 6.25 Mg PO BIDWMEALS Venlafaxine Hcl Er (Venlafaxine Hcl) 75 Mg Cap.er.24h 75 Mg PO DAILY [place]-M (Multivits, W-Fe,Other Min) 1 Each Tablet 1 Each PO DAILY Namenda Xr (Memantine Hcl) 28 Mg Cap.spr.24 28 Mg PO DAILY Diagnosis: Problems: (1) Anxiety disorder (2) Impulse control disorder (3) Dementia, vascular, with depression (4) Dementia, vascular, with delusions (5) Dementia in Alzheimer's disease with depression (6) Dementia in Alzheimer's disease with delusions (7) Schizoaffective disorder (8) Bipolar affective disorder, mixed CRISTY SEWELL MD Apr 19, 2017 21:41
[2017-04-20 05:56] VITALS: BP 104/60
[2017-04-20 06:51] LABS: BASO # 0.1 x10^3/uL (0.0-0.2); BASO % 1 % (0-3); EOS # 0.2 x10^3/uL (0.0-0.7); EOS % 1 % (0-3); HEMATOCRIT 39.8 % (36.0-47.0); HEMOGLOBIN 13.3 g/dL (12.0-15.5); LYMPH # 1.6 x10^3/uL (1.0-4.8); LYMPH % 13 % (24-48); MEAN CORPUSCULAR HEMOGLOBIN 31 pg (25-35); MEAN CORPUSCULAR HGB CONC 33 g/dL (31-37); MEAN CORPUSCULAR VOLUME 92 fL (79-100); MONO # 1.4 x10^3/uL (0.0-1.1); MONO % 11 % (0-9); NEUT # 9.3 x10^3uL (1.8-7.7); NEUT % 74 % (31-73); PLATELET COUNT 271 x10^3/uL (140-400); RED BLOOD COUNT 4.34 x10^6/uL (3.50-5.40); RED CELL DISTRIBUTION WIDTH 13.4 % (11.5-14.5); WHITE BLOOD COUNT 12.7 x10^3/uL (4.0-11.0)
[2017-04-20 07:00] LABS: ALBUMIN 3.2 g/dL (3.4-5.0); ALBUMIN/GLOBULIN RATIO 0.9 (1.0-1.7); ALK PHOS 109 U/L (46-116); ALT (SGPT) 25 U/L (14-59); ANION GAP 8 (6-14); AST (SGOT) 19 U/L (15-37); BLOOD UREA NITROGEN 28 mg/dL (7-20); BUN/CREATININE RATIO 22 (6-20); CALCIUM 8.8 mg/dL (8.5-10.1); CARBON DIOXIDE 31 mmol/L (21-32); CHLORIDE 104 mmol/L (98-107); CREATININE 1.3 mg/dL (0.6-1.0); GFR 41.9; GLUCOSE 110 mg/dL (70-99); POTASSIUM 4.2 mmol/L (3.5-5.1); SODIUM 143 mmol/L (136-145); TOTAL BILIRUBIN 0.4 mg/dL (0.2-1.0); TOTAL PROTEIN 6.7 g/dL (6.4-8.2)
[2017-04-20 07:01] LABS: VAL ACID 63 mcg/mL (50-100)
[2017-04-20 08:09] LABS: % BANDS 5 % (0-9); % EOS 3 % (0-5); % LYMPHS 13 % (24-48); % MONOS 13 % (0-10); % SEGS 66 % (35-66)
[2017-04-20 08:10] LABS: PLT ESTIMATE ADEQUATE (ADEQUATE); TOXIC GRANULATION SLIGHT
[2017-04-20] MEDS: risperiDONE 0.5 MG TABLET. PO SCH ×2 (08:59→20:20)
[2017-04-20] MEDS: busPIRone 5 MG TABLET. PO SCH ×2 (08:59→13:12)
[2017-04-20] MEDS: DULoxetine HCL 30 MG CAPSULE.DR PO SCH (08:59)
[2017-04-20] MEDS: MULTIVITAMIN with MINERAL TABLET. PO SCH (08:59)
[2017-04-20] MEDS: DIVALPROEX 125 MG CAP.SPRINK PO SCH ×2 (08:59→20:19)
[2017-04-20] MEDS: MEMANTINE 10 MG TABLET. PO SCH ×2 (08:59→20:19)
[2017-04-20] MEDS: CARVEDILOL 6.25 MG TABLET PO SCH ×2 (09:00→17:33)
[2017-04-20] MEDS: NICOTINE 7MG PATCH. TD SCH (09:00)
--- NOTE | 2017-04-20 15:49 | PN ---
DATE: 04/19/2017 PSYCHIATRIC PROGRESS NOTE This late entry of 04/19/2017 covers the elements not covered in my initial note. The patient has been pleasant, confused, ____ BuSpar was held. She slept from 1:30 to 3:30. SOCIAL: Interactive, but confused. No family visited. She has been anxious in the evening. REVIEW OF SYSTEMS: No CV, , pulmonary, eye, ENT system symptoms on review. Reliability, poor. Mental status exam, oriented to herself. Insight and judgment, recent remote memory, attention, concentration, fund of knowledge poor consistent with her diagnoses as mentioned in my initial note. Check CBC, CMP, valproic acid ammonia level in the morning of 04/20. Continue the rest of the psychotrophics as mentioned. MAN Julisa SEWELL MD DR: MARIA GUADALUPE/michael JOB#: [id number] / [id number]
[2017-04-20 16:26] VITALS: BP 114/79
--- NOTE | 2017-04-20 19:47 | PDOC ---
Exam Jose Demential Exam: Jose Note: Please also refer to the separate dictated note~for this date of service dictated separately.~Patient seen individually. Discussed the patient with Nursing staff reviewed the chart.~Reviewed interim history and current functioning. Reviewed vital signs,~Labs/ Radiology~and current medications noted below. Continue current treatment with the changes noted in the dictated addendum note Assessment: Vital Signs: Vital Signs Date Time Temp Pulse Resp B/P (MAP) Pulse Ox O2 Delivery O2 Flow Rate FiO2 04/20/17 17:33 84 114/79 04/20/17 16:26 99.3 16 96 04/17/17 05:49 Room Air I&O Intake and Output 04/20/17 07:00 Intake Total 840 ml Balance 840 ml Intake Oral 840 ml Labs: Laboratory Tests Test 04/20/17 06:27 White Blood Count 12.7 x10^3/uL (4.0-11.0) #H Red Blood Count 4.34 x10^6/uL (3.50-5.40) Hemoglobin 13.3 g/dL (12.0-15.5) Hematocrit 39.8 % (36.0-47.0) Mean Corpuscular Volume 92 fL (79-100) Mean Corpuscular Hemoglobin 31 pg (25-35) Mean Corpuscular Hemoglobin Concent 33 g/dL (31-37) Red Cell Distribution Width 13.4 % (11.5-14.5) Platelet Count 271 x10^3/uL (140-400) Neutrophils (%) (Auto) 74 % (31-73) H Lymphocytes (%) (Auto) 13 % (24-48) L Monocytes (%) (Auto) 11 % (0-9) H Eosinophils (%) (Auto) 1 % (0-3) Basophils (%) (Auto) 1 % (0-3) Neutrophils # (Auto) 9.3 x10^3uL (1.8-7.7) H Lymphocytes # (Auto) 1.6 x10^3/uL (1.0-4.8) Monocytes # (Auto) 1.4 x10^3/uL (0.0-1.1) H Eosinophils # (Auto) 0.2 x10^3/uL (0.0-0.7) Basophils # (Auto) 0.1 x10^3/uL (0.0-0.2) Segmented Neutrophils % 66 % (35-66) Band Neutrophils % 5 % (0-9) Lymphocytes % 13 % (24-48) L Monocytes % 13 % (0-10) H Eosinophils % 3 % (0-5) Toxic Granulation Slight Platelet Estimate Adequate (ADEQUATE) Large Platelets Occ Sodium Level 143 mmol/L (136-145) Potassium Level 4.2 mmol/L (3.5-5.1) Chloride Level 104 mmol/L (98-107) Carbon Dioxide Level 31 mmol/L (21-32) Anion Gap 8 (6-14) Blood Urea Nitrogen 28 mg/dL (7-20) H Creatinine 1.3 mg/dL (0.6-1.0) H Estimated GFR (Cockcroft-Gault) 41.9 BUN/Creatinine Ratio 22 (6-20) H Glucose Level 110 mg/dL (70-99) H Calcium Level 8.8 mg/dL (8.5-10.1) Total Bilirubin 0.4 mg/dL (0.2-1.0) Aspartate Amino Transferase (AST) 19 U/L (15-37) Alanine Aminotransferase (ALT) 25 U/L (14-59) Alkaline Phosphatase 109 U/L (46-116) Ammonia < 10 mcmol/L (11-34) L Total Protein 6.7 g/dL (6.4-8.2) Albumin 3.2 g/dL (3.4-5.0) L Albumin/Globulin Ratio 0.9 (1.0-1.7) L Valproic Acid Level 63 mcg/mL (50-100) Valproic Acid Last Dose Date 04/19/17 Valproic Acid Last Dose Time 2100 Current Medications: Meds: Current Medications Atorvastatin Calcium (Lipitor) 20 mg QHS PO Last administered on 04/19/17 19: 19; Start 04/07/17 at 21:00 Bismuth Subsalicylate (Pepto-Bismol) 262 mg PRN DAILY PRN PO GI SYMPTOMS; Start 04/07/17 at 21:00 Carvedilol (Coreg) 6.25 mg BIDWMEALS PO Last administered on 04/20/17 17:33; Start 04/08/17 at 08:00 Cetirizine HCl (ZyrTEC) 10 mg PRN DAILY PRN PO ALLERGIES; Start 04/07/17 at 21: 00 Acetaminophen/ Hydrocodone Bitart (Lortab 5/325) 1 tab PRN Q4HRS PRN PO PAIN; Start 04/07/17 at 21:00 Loperamide HCl (Imodium) 2 mg PRN DAILY PRN PO loose stools; Start 04/07/17 at 21:00 Multivitamins/ Calcium (Thera-M Plus) 1 tab DAILY PO Last administered on 08:59; Start 04/08/17 at 09:00 Lorazepam (Ativan) 1 mg PRN TID PRN PO ANXIETY / AGITATION Last administered on 04/16/17 23:11; Start 04/07/17 at 21:15 Risperidone (RisperDAL) 1 mg BID PO Last administered on 04/10/17 08:04; Start 04/07/17 at 21:30; Stop 04/10/17 at 10:42; Status DC Memantine (Namenda) 10 mg BID PO Last administered on 04/20/17 08:59; Start at 09:00 Venlafaxine HCl (Effexor Xr) 37.5 mg BID PO Last administered on 04/08/17 08: 25; Start 04/08/17 at 09:00; Stop 04/08/17 at 18:57; Status DC Acetaminophen (Tylenol) 650 mg PRN Q6HRS PRN PO PAIN / TEMP Last administered on 04/10/17 06:31; Start 04/07/17 at 21:15 Multi-Ingredient Ointment (Analgesic [place]) 1 lisa PRN QID PRN TP MUSCLE PAIN; Start 04/07/17 at 21:15 Al Hydroxide/Mg Hydroxide (Mylanta Plus Xs) 15 ml PRN AFTMEALHC PRN PO DYSPEPSIA; Start 04/07/17 at 21:15 Magnesium Hydroxide (Milk Of Magnesia) 2,400 mg PRN QHS PRN PO CONSTIPATION Last administered on 04/13/17 17:05; Start 04/07/17 at 21:15 Nicotine (Nicoderm Cq 7mg) 1 patch DAILY TD Last administered on 04/20/17 09: 00; Start 04/08/17 at 09:00 Vitamin D (Vitamin D3) 50,000 unit WEEKLY PO Last administered on 04/16/17 08: 26; Start 04/09/17 at 09:00 Venlafaxine HCl (Effexor) 50 mg TID PO Last administered on 04/17/17 10:10; Start 04/08/17 at 19:00; Stop 04/17/17 at 10:47; Status DC Divalproex Sodium (Depakote Sprinkles) 250 mg HS PO Last administered on 19:51; Start 04/08/17 at 21:00; Stop 04/12/17 at 19:12; Status DC Risperidone (RisperDAL) 0.5 mg BID PO Last administered on 04/20/17 08:59; Start 04/10/17 at 21:00 Olanzapine (ZyPREXA ZYDIS) 2.5 mg PRN Q2HR PRN PO PSYCHOSIS; Start 04/12/17 at 09:00 Divalproex Sodium (Depakote Sprinkles) 250 mg BID PO Last administered on 10:11; Start 04/12/17 at 21:00; Stop 04/17/17 at 15:17; Status DC Buspirone HCl (Buspar) 5 mg BID92 PO Last administered on 04/20/17 13:12; Start 04/17/17 at 14:00 Duloxetine HCl (Cymbalta) 30 mg DAILY PO Last administered on 04/20/17 08:59; Start 04/18/17 at 09:00; Stop 04/20/17 at 09:01; Status DC Duloxetine HCl (Cymbalta) 60 mg DAILY PO ; Start 04/21/17 at 09:00 Divalproex Sodium (Depakote Sprinkles) 375 mg BID PO Last administered on 08:59; Start 04/17/17 at 21:00 Active Scripts Active Reported Venlafaxine Hcl Er (Venlafaxine Hcl) 225 Mg Tab.er.24 225 Mg PO DAILY [place] Bismuth (Bismuth Subsalicylate) 262 Mg/15 Ml Oral.susp 262 Mg PO PRN DAILY PRN Lorazepam 1 Mg Tablet 1 Mg PO PRN TID PRN Loperamide (Loperamide Hcl) 2 Mg Capsule 2 Mg PO PRN PRN Hydrocodone-Apap 5-325 (Hydrocodone Bit/Acetaminophen) 1 Each Tablet 1 Tab PO PRN Q4HRS PRN Cetirizine Hcl 10 Mg Tablet 10 Mg PO PRN DAILY PRN Risperdal (Risperidone) 1 Mg Tablet 1 Mg PO BID Atorvastatin Calcium 20 Mg Tablet 20 Mg PO QHS Carvedilol 6.25 Mg Tablet 6.25 Mg PO BIDWMEALS Venlafaxine Hcl Er (Venlafaxine Hcl) 75 Mg Cap.er.24h 75 Mg PO DAILY [place]-M (Multivits, W-Fe,Other Min) 1 Each Tablet 1 Each PO DAILY Namenda Xr (Memantine Hcl) 28 Mg Cap.spr.24 28 Mg PO DAILY Diagnosis: Problems: (1) Anxiety disorder (2) Impulse control disorder (3) Dementia, vascular, with depression (4) Dementia, vascular, with delusions (5) Dementia in Alzheimer's disease with depression (6) Dementia in Alzheimer's disease with delusions (7) Schizoaffective disorder (8) Bipolar affective disorder, mixed CRISTY SEWELL MD Apr 20, 2017 19:47
[2017-04-20] MEDS: ATORVASTATIN CALCIUM 20 MG TABLET PO SCH (20:19)
[2017-04-21 06:11] VITALS: BP 102/63
[2017-04-21] MEDS: MULTIVITAMIN with MINERAL TABLET. PO SCH (08:51)
[2017-04-21] MEDS: busPIRone 5 MG TABLET. PO SCH ×3 (08:51→19:47)
[2017-04-21] MEDS: risperiDONE 0.5 MG TABLET. PO SCH ×2 (08:51→19:45)
[2017-04-21] MEDS: MEMANTINE 10 MG TABLET. PO SCH ×2 (08:51→19:45)
[2017-04-21] MEDS: CARVEDILOL 6.25 MG TABLET PO SCH ×2 (08:52→18:15)
[2017-04-21] MEDS: NICOTINE 7MG PATCH. TD SCH (08:52)
[2017-04-21] MEDS: DIVALPROEX 125 MG CAP.SPRINK PO SCH ×2 (08:52→19:45)
[2017-04-21] MEDS: DULoxetine HCL 60 MG CAPSULE.DR PO SCH (08:53)
[2017-04-21 16:01] VITALS: BP 111/69
[2017-04-21] MEDS: ATORVASTATIN CALCIUM 20 MG TABLET PO SCH (19:44)
--- NOTE | 2017-04-21 19:53 | PDOC ---
Exam Jose Demential Exam: Jose Note: Please also refer to the separate dictated note~for this date of service dictated separately.~Patient seen individually. Discussed the patient with Nursing staff reviewed the chart.~Reviewed interim history and current functioning. Reviewed vital signs,~Labs/ Radiology~and current medications noted below. Continue current treatment with the changes noted in the dictated addendum note Assessment: Vital Signs: Vital Signs Date Time Temp Pulse Resp B/P (MAP) Pulse Ox O2 Delivery O2 Flow Rate FiO2 04/21/17 18:15 71 111/69 04/21/17 16:01 97.3 20 96 04/17/17 05:49 Room Air I&O Intake and Output 04/21/17 07:00 Intake Total 840 ml Balance 840 ml Intake Oral 840 ml # Bowel Movements 2 Current Medications: Meds: Current Medications Atorvastatin Calcium (Lipitor) 20 mg QHS PO Last administered on 04/21/17 19: 44; Start 04/07/17 at 21:00 Bismuth Subsalicylate (Pepto-Bismol) 262 mg PRN DAILY PRN PO GI SYMPTOMS; Start 04/07/17 at 21:00 Carvedilol (Coreg) 6.25 mg BIDWMEALS PO Last administered on 04/21/17 18:15; Start 04/08/17 at 08:00 Cetirizine HCl (ZyrTEC) 10 mg PRN DAILY PRN PO ALLERGIES; Start 04/07/17 at 21: 00 Acetaminophen/ Hydrocodone Bitart (Lortab 5/325) 1 tab PRN Q4HRS PRN PO PAIN; Start 04/07/17 at 21:00 Loperamide HCl (Imodium) 2 mg PRN DAILY PRN PO loose stools; Start 04/07/17 at 21:00 Multivitamins/ Calcium (Thera-M Plus) 1 tab DAILY PO Last administered on 08:51; Start 04/08/17 at 09:00 Lorazepam (Ativan) 1 mg PRN TID PRN PO ANXIETY / AGITATION Last administered on 04/16/17 23:11; Start 04/07/17 at 21:15 Risperidone (RisperDAL) 1 mg BID PO Last administered on 04/10/17 08:04; Start 04/07/17 at 21:30; Stop 04/10/17 at 10:42; Status DC Memantine (Namenda) 10 mg BID PO Last administered on 04/21/17 19:45; Start at 09:00 Venlafaxine HCl (Effexor Xr) 37.5 mg BID PO Last administered on 04/08/17 08: 25; Start 04/08/17 at 09:00; Stop 04/08/17 at 18:57; Status DC Acetaminophen (Tylenol) 650 mg PRN Q6HRS PRN PO PAIN / TEMP Last administered on 04/10/17 06:31; Start 04/07/17 at 21:15 Multi-Ingredient Ointment (Analgesic [place]) 1 lisa PRN QID PRN TP MUSCLE PAIN; Start 04/07/17 at 21:15 Al Hydroxide/Mg Hydroxide (Mylanta Plus Xs) 15 ml PRN AFTMEALHC PRN PO DYSPEPSIA; Start 04/07/17 at 21:15 Magnesium Hydroxide (Milk Of Magnesia) 2,400 mg PRN QHS PRN PO CONSTIPATION Last administered on 04/13/17 17:05; Start 04/07/17 at 21:15 Nicotine (Nicoderm Cq 7mg) 1 patch DAILY TD Last administered on 04/21/17 08: 52; Start 04/08/17 at 09:00 Vitamin D (Vitamin D3) 50,000 unit WEEKLY PO Last administered on 04/16/17 08: 26; Start 04/09/17 at 09:00 Venlafaxine HCl (Effexor) 50 mg TID PO Last administered on 04/17/17 10:10; Start 04/08/17 at 19:00; Stop 04/17/17 at 10:47; Status DC Divalproex Sodium (Depakote Sprinkles) 250 mg HS PO Last administered on 19:51; Start 04/08/17 at 21:00; Stop 04/12/17 at 19:12; Status DC Risperidone (RisperDAL) 0.5 mg BID PO Last administered on 04/21/17 19:45; Start 04/10/17 at 21:00 Olanzapine (ZyPREXA ZYDIS) 2.5 mg PRN Q2HR PRN PO PSYCHOSIS; Start 04/12/17 at 09:00 Divalproex Sodium (Depakote Sprinkles) 250 mg BID PO Last administered on 10:11; Start 04/12/17 at 21:00; Stop 04/17/17 at 15:17; Status DC Buspirone HCl (Buspar) 5 mg BID92 PO Last administered on 04/21/17 13:37; Start 04/17/17 at 14:00; Stop 04/21/17 at 18:10; Status DC Duloxetine HCl (Cymbalta) 30 mg DAILY PO Last administered on 04/20/17 08:59; Start 04/18/17 at 09:00; Stop 04/20/17 at 09:01; Status DC Duloxetine HCl (Cymbalta) 60 mg DAILY PO Last administered on 04/21/17 08:53; Start 04/21/17 at 09:00 Divalproex Sodium (Depakote Sprinkles) 375 mg BID PO Last administered on 19:45; Start 04/17/17 at 21:00 Buspirone HCl (Buspar) 5 mg TID PO Last administered on 04/21/17 19:47; Start 04/21/17 at 21:00 Active Scripts Active Reported Venlafaxine Hcl Er (Venlafaxine Hcl) 225 Mg Tab.er.24 225 Mg PO DAILY [place] Bismuth (Bismuth Subsalicylate) 262 Mg/15 Ml Oral.susp 262 Mg PO PRN DAILY PRN Lorazepam 1 Mg Tablet 1 Mg PO PRN TID PRN Loperamide (Loperamide Hcl) 2 Mg Capsule 2 Mg PO PRN PRN Hydrocodone-Apap 5-325 (Hydrocodone Bit/Acetaminophen) 1 Each Tablet 1 Tab PO PRN Q4HRS PRN Cetirizine Hcl 10 Mg Tablet 10 Mg PO PRN DAILY PRN Risperdal (Risperidone) 1 Mg Tablet 1 Mg PO BID Atorvastatin Calcium 20 Mg Tablet 20 Mg PO QHS Carvedilol 6.25 Mg Tablet 6.25 Mg PO BIDWMEALS Venlafaxine Hcl Er (Venlafaxine Hcl) 75 Mg Cap.er.24h 75 Mg PO DAILY [place]-M (Multiv, W-Fe,Other Min) 1 Each Tablet 1 Each PO DAILY Namenda Xr (Memantine Hcl) 28 Mg Cap.spr.24 28 Mg PO DAILY Diagnosis: Problems: (1) Anxiety disorder (2) Impulse control disorder (3) Dementia, vascular, with depression (4) Dementia, vascular, with delusions (5) Dementia in Alzheimer's disease with depression (6) Dementia in Alzheimer's disease with delusions (7) Schizoaffective disorder (8) Bipolar affective disorder, mixed CRISTY SEWELL MD Apr 21, 2017 19:53
--- NOTE | 2017-04-22 00:55 | PN ---
DATE: 04/20/2017 PSYCHIATRIC PROGRESS NOTE This is a late entry of 04/20/2017 covers elements not covered in my initial note. SUBJECTIVE: The patient slept 3-1/4 hours previous night. She has been removing clothes at shift change. Family visited at lunch. She is disorganized and medication compliant. Incontinent of stool attempted to hit staff with feces on hand. No CV, , pulmonary, eye, ENT system symptoms on review. Reliability poor. The above was per nursing report. MENTAL STATUS EXAM: Oriented to herself, not very verbal as I met with her in her room. Insight, judgment, recent and remote memory, attention, concentration, fund of knowledge poor, consistent with her diagnosis mentioned in my initial note. 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 PLAN: Continue Namenda 10 mg b.i.d., Ativan 1 mg t.i.d. p.r.n., Risperdal 0.5 mg b.i.d. Depakote 375 b.i.d., level 63, Zyprexa p.r.n., BuSpar 5 mg b.i.d., which we will increased to 5 mg 3 times a day on 04/21/2017 depending on her progress and Cymbalta 60 mg a day. Adjust further as clinically indicated. CRISTY SEWELL MD DR: MARIA GUADALUPE/michael JOB#: [id number] / [id number]
[2017-04-22 06:38] VITALS: BP 130/71
[2017-04-22] MEDS: busPIRone 5 MG TABLET. PO SCH ×3 (07:56→20:10)
[2017-04-22] MEDS: CARVEDILOL 6.25 MG TABLET PO SCH ×2 (07:57→17:23)
[2017-04-22] MEDS: MEMANTINE 10 MG TABLET. PO SCH ×2 (07:57→20:10)
[2017-04-22] MEDS: risperiDONE 0.5 MG TABLET. PO SCH ×2 (07:57→20:10)
[2017-04-22] MEDS: DULoxetine HCL 60 MG CAPSULE.DR PO SCH (07:57)
[2017-04-22] MEDS: MULTIVITAMIN with MINERAL TABLET. PO SCH (07:57)
[2017-04-22] MEDS: DIVALPROEX 125 MG CAP.SPRINK PO SCH ×2 (07:57→20:10)
[2017-04-22] MEDS: NICOTINE 7MG PATCH. TD SCH (07:58)
[2017-04-22 13:34] VITALS: BP 107/58
[2017-04-22 13:37] LABS: BASO # 0.1 x10^3/uL (0.0-0.2); BASO % 1 % (0-3); EOS # 0.2 x10^3/uL (0.0-0.7); EOS % 2 % (0-3); HEMATOCRIT 39.4 % (36.0-47.0); HEMOGLOBIN 13.3 g/dL (12.0-15.5); LYMPH # 1.7 x10^3/uL (1.0-4.8); LYMPH % 18 % (24-48); MEAN CORPUSCULAR HEMOGLOBIN 31 pg (25-35); MEAN CORPUSCULAR HGB CONC 34 g/dL (31-37); MEAN CORPUSCULAR VOLUME 93 fL (79-100); MONO % 10 % (0-9); NEUT # 6.6 x10^3uL (1.8-7.7); NEUT % 69 % (31-73); PLATELET COUNT 243 x10^3/uL (140-400); RED BLOOD COUNT 4.26 x10^6/uL (3.50-5.40); RED CELL DISTRIBUTION WIDTH 13.3 % (11.5-14.5); WHITE BLOOD COUNT 9.5 x10^3/uL (4.0-11.0)
[2017-04-22 13:38] LABS: ALBUMIN 2.9 g/dL (3.4-5.0); ALBUMIN/GLOBULIN RATIO 0.8 (1.0-1.7); CALCIUM 8.8 mg/dL (8.5-10.1); CREATININE 1.3 mg/dL (0.6-1.0); GFR 41.9; MAGNESIUM 2.4 mg/dL (1.8-2.4); POTASSIUM 4.1 mmol/L (3.5-5.1); TOTAL BILIRUBIN 0.4 mg/dL (0.2-1.0); TOTAL PROTEIN 6.5 g/dL (6.4-8.2)
[2017-04-22] MEDS ORDERED: DOXY100C2 PO (15:17)
--- NOTE | 2017-04-22 15:25 | RAD ---
Portable chest, 04/22/2017: History: Productive cough The heart size and pulmonary vascularity are normal. There is calcific plaquing of the aorta. No pulmonary infiltrates are seen. There is no evidence of pleural fluid. IMPRESSION: No acute cardiopulmonary abnormality is detected.
[2017-04-22 16:24] VITALS: BP 105/64
[2017-04-22] MEDS: ACETAMINOPHEN 325 MG TABLET PO PRN (17:23)
--- NOTE | 2017-04-22 19:58 | PDOC ---
Exam Jose Demential Exam: Jose Note: Please also refer to the separate dictated note~for this date of service dictated separately.~Patient seen individually. Discussed the patient with Nursing staff reviewed the chart.~Reviewed interim history and current functioning. Reviewed vital signs,~Labs/ Radiology~and current medications noted below. Continue current treatment with the changes noted in the dictated addendum note Assessment: Vital Signs: Vital Signs Date Time Temp Pulse Resp B/P (MAP) Pulse Ox O2 Delivery O2 Flow Rate FiO2 04/22/17 17:23 65 105/64 04/22/17 16:24 98.7 16 98 04/17/17 05:49 Room Air I&O Intake and Output 04/22/17 07:00 Intake Total 360 ml Balance 360 ml Intake Oral 360 ml # Bowel Movements 1 Labs: Laboratory Tests Test 04/22/17 13:13 White Blood Count 9.5 x10^3/uL (4.0-11.0) Red Blood Count 4.26 x10^6/uL (3.50-5.40) Hemoglobin 13.3 g/dL (12.0-15.5) Hematocrit 39.4 % (36.0-47.0) Mean Corpuscular Volume 93 fL (79-100) Mean Corpuscular Hemoglobin 31 pg (25-35) Mean Corpuscular Hemoglobin Concent 34 g/dL (31-37) Red Cell Distribution Width 13.3 % (11.5-14.5) Platelet Count 243 x10^3/uL (140-400) Neutrophils (%) (Auto) 69 % (31-73) Lymphocytes (%) (Auto) 18 % (24-48) L Monocytes (%) (Auto) 10 % (0-9) H Eosinophils (%) (Auto) 2 % (0-3) Basophils (%) (Auto) 1 % (0-3) Neutrophils # (Auto) 6.6 x10^3uL (1.8-7.7) Lymphocytes # (Auto) 1.7 x10^3/uL (1.0-4.8) Monocytes # (Auto) 1.0 x10^3/uL (0.0-1.1) Eosinophils # (Auto) 0.2 x10^3/uL (0.0-0.7) Basophils # (Auto) 0.1 x10^3/uL (0.0-0.2) Sodium Level 142 mmol/L (136-145) Potassium Level 4.1 mmol/L (3.5-5.1) Chloride Level 104 mmol/L (98-107) Carbon Dioxide Level 30 mmol/L (21-32) Anion Gap 8 (6-14) Blood Urea Nitrogen 28 mg/dL (7-20) H Creatinine 1.3 mg/dL (0.6-1.0) H Estimated GFR (Cockcroft-Gault) 41.9 BUN/Creatinine Ratio 22 (6-20) H Glucose Level 149 mg/dL (70-99) H Lactic Acid Level 1.3 mmol/L (0.4-2.0) Calcium Level 8.8 mg/dL (8.5-10.1) Magnesium Level 2.4 mg/dL (1.8-2.4) Total Bilirubin 0.4 mg/dL (0.2-1.0) Aspartate Amino Transferase (AST) 21 U/L (15-37) Alanine Aminotransferase (ALT) 17 U/L (14-59) Alkaline Phosphatase 102 U/L (46-116) Total Protein 6.5 g/dL (6.4-8.2) Albumin 2.9 g/dL (3.4-5.0) L Albumin/Globulin Ratio 0.8 (1.0-1.7) L Current Medications: Meds: Current Medications Atorvastatin Calcium (Lipitor) 20 mg QHS PO Last administered on 04/21/17t 19: 44; Start 04/07/17 at 21:00 Bismuth Subsalicylate (Pepto-Bismol) 262 mg PRN DAILY PRN PO GI SYMPTOMS; Start 04/07/17 at 21:00 Carvedilol (Coreg) 6.25 mg BIDWMEALS PO Last administered on 04/22/17t 17:23; Start 04/08/17 at 08:00 Cetirizine HCl (ZyrTEC) 10 mg PRN DAILY PRN PO ALLERGIES; Start 04/07/17 at 21: 00 Acetaminophen/ Hydrocodone Bitart (Lortab 5/325) 1 tab PRN Q4HRS PRN PO PAIN; Start 04/07/17 at 21:00 Loperamide HCl (Imodium) 2 mg PRN DAILY PRN PO loose stools; Start 04/07/17 at 21:00 Multivitamins/ Calcium (Thera-M Plus) 1 tab DAILY PO Last administered on 07:57; Start 04/08/17 at 09:00 Lorazepam (Ativan) 1 mg PRN TID PRN PO ANXIETY / AGITATION Last administered on 04/16/17 23:11; Start 04/07/17 at 21:15 Risperidone (RisperDAL) 1 mg BID PO Last administered on 04/10/17 08:04; Start 04/07/17 at 21:30; Stop 04/10/17 at 10:42; Status DC Memantine (Namenda) 10 mg BID PO Last administered on 04/22/17 07:57; Start at 09:00 Venlafaxine HCl (Effexor Xr) 37.5 mg BID PO Last administered on 04/08/17 08: 25; Start 04/08/17 at 09:00; Stop 04/08/17 at 18:57; Status DC Acetaminophen (Tylenol) 650 mg PRN Q6HRS PRN PO PAIN / TEMP Last administered on 04/22/17 17:23; Start 04/07/17 at 21:15 Multi-Ingredient Ointment (Analgesic [place]) 1 lisa PRN QID PRN TP MUSCLE PAIN; Start 04/07/17 at 21:15 Al Hydroxide/Mg Hydroxide (Mylanta Plus Xs) 15 ml PRN AFTMEALHC PRN PO DYSPEPSIA; Start 04/07/17 at 21:15 Magnesium Hydroxide (Milk Of Magnesia) 2,400 mg PRN QHS PRN PO CONSTIPATION Last administered on 04/13/17 17:05; Start 04/07/17 at 21:15 Nicotine (Nicoderm Cq 7mg) 1 patch DAILY TD Last administered on 04/22/17 07:58 ; Start 04/08/17 at 09:00 Vitamin D (Vitamin D3) 50,000 unit WEEKLY PO Last administered on 04/16/17 08: 26; Start 04/09/17 at 09:00 Venlafaxine HCl (Effexor) 50 mg TID PO Last administered on 04/17/17 10:10; Start 04/08/17 at 19:00; Stop 04/17/17 at 10:47; Status DC Divalproex Sodium (Depakote Sprinkles) 250 mg HS PO Last administered on 19:51; Start 04/08/17 at 21:00; Stop 04/12/17 at 19:12; Status DC Risperidone (RisperDAL) 0.5 mg BID PO Last administered on 04/22/17 07:57; Start 04/10/17 at 21:00 Olanzapine (ZyPREXA ZYDIS) 2.5 mg PRN Q2HR PRN PO PSYCHOSIS; Start 04/12/17 at 09:00 Divalproex Sodium (Depakote Sprinkles) 250 mg BID PO Last administered on 10:11; Start 04/12/17 at 21:00; Stop 04/17/17 at 15:17; Status DC Buspirone HCl (Buspar) 5 mg BID92 PO Last administered on 04/21/17 13:37; Start 04/17/17 at 14:00; Stop 04/21/17 at 18:10; Status DC Duloxetine HCl (Cymbalta) 30 mg DAILY PO Last administered on 04/20/17 08:59; Start 04/18/17 at 09:00; Stop 04/20/17 at 09:01; Status DC Duloxetine HCl (Cymbalta) 60 mg DAILY PO Last administered on 04/22/17 07:57; Start 04/21/17 at 09:00 Divalproex Sodium (Depakote Sprinkles) 375 mg BID PO Last administered on 07:57; Start 04/17/17 at 21:00 Buspirone HCl (Buspar) 5 mg TID PO Last administered on 04/22/17 07:56; Start 04/21/17 at 21:00 Doxycycline Hyclate (Vibra-Tab) 100 mg BID PO ; Start 04/22/17 at 21:00 Active Scripts Active Reported Doxycycline Hyclate 100 Mg Capsule 1 Cap PO BID Venlafaxine Hcl Er (Venlafaxine Hcl) 225 Mg Tab.er.24 225 Mg PO DAILY [place] Bismuth (Bismuth Subsalicylate) 262 Mg/15 Ml Oral.susp 262 Mg PO PRN DAILY PRN Lorazepam 1 Mg Tablet 1 Mg PO PRN TID PRN Loperamide (Loperamide Hcl) 2 Mg Capsule 2 Mg PO PRN PRN Hydrocodone-Apap 5-325 (Hydrocodone Bit/Acetaminophen) 1 Each Tablet 1 Tab PO PRN Q4HRS PRN Cetirizine Hcl 10 Mg Tablet 10 Mg PO PRN DAILY PRN Risperdal (Risperidone) 1 Mg Tablet 1 Mg PO BID Atorvastatin Calcium 20 Mg Tablet 20 Mg PO QHS Carvedilol 6.25 Mg Tablet 6.25 Mg PO BIDWMEALS Venlafaxine Hcl Er (Venlafaxine Hcl) 75 Mg Cap.er.24h 75 Mg PO DAILY [place]-M (Multivits, W-Fe,Other Min) 1 Each Tablet 1 Each PO DAILY Namenda Xr (Memantine Hcl) 28 Mg Cap.spr.24 28 Mg PO DAILY Diagnosis: Problems: (1) Anxiety disorder (2) Impulse control disorder (3) Dementia, vascular, with depression (4) Dementia, vascular, with delusions (5) Dementia in Alzheimer's disease with depression (6) Dementia in Alzheimer's disease with delusions (7) Schizoaffective disorder (8) Bipolar affective disorder, mixed CRISTY SEWELL MD Apr 22, 2017 19:58
[2017-04-22] MEDS: ATORVASTATIN CALCIUM 20 MG TABLET PO SCH (20:10)
[2017-04-22] MEDS: DOXYCYCLINE HYCLATE 100 MG TABLET PO SCH (20:12)
--- NOTE | 2017-04-22 23:45 | PN ---
DATE: 04/21/2017 This is a late entry 04/21/2017 covers elements not covered in my initial note. SUBJECTIVE: I met with the patient evening of 04/21/2017. Per nursing report, the patient remains confused, compliant with the medications, cooperative, not very verbal. She was repeatedly knocking on the door, unaware of what she was doing, but then stopped it by nursing intervention. No family visited on 04/21/2017. REVIEW OF SYSTEMS: No CV, , eye, ENT or pulmonary system symptoms on review. Reliability poor. MENTAL STATUS EXAM: Oriented to herself. Insight, judgment, recent and remote memory, attention, concentration, fund of knowledge poor, consistent with her diagnosis mentioned in my initial note. LABORATORY DATA: Reviewed. 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 PLAN: Continue psychotropics mentioned in my initial note. Adjust further as clinically indicated. I have reviewed drug interactions and risk/benefit ratio favors no change in her psychotropics just yet. MAN Julisa SEWELL MD DR: MARIA GUADALUPE/michael JOB#: [id number] / [id number]
[2017-04-22] MEDS ORDERED: ACET325T21 PO (23:46)
[2017-04-22] MEDS ORDERED: CHOL500021 PO (23:50)
[2017-04-22] MEDS ORDERED: DIVA125C PO (23:51)
[2017-04-22] MEDS ORDERED: DULO60CA6 PO (23:52)
[2017-04-22] MEDS ORDERED: MAG30ORA2 PO (23:54)
[2017-04-22] MEDS ORDERED: MAGN2400 PO (23:55)
[2017-04-22] MEDS ORDERED: MEMA10TA PO (23:55)
[2017-04-22] MEDS ORDERED: METH29OI TP (23:57)
[2017-04-22] MEDS ORDERED: NICO1PAT27 TD (23:58)
[2017-04-22] MEDS ORDERED: OLAN2.5T3 PO (23:59)
[2017-04-23] MEDS ORDERED: BUSP5TAB PO
[2017-04-23 05:58] VITALS: BP 151/83
[2017-04-23 08:59] VITALS: BP 151/83
[2017-04-23] MEDS: DULoxetine HCL 60 MG CAPSULE.DR PO SCH (08:59)
[2017-04-23] MEDS: CARVEDILOL 6.25 MG TABLET PO SCH (08:59)
[2017-04-23] MEDS: MULTIVITAMIN with MINERAL TABLET. PO SCH (09:00)
[2017-04-23] MEDS: busPIRone 5 MG TABLET. PO SCH (09:00)
[2017-04-23] MEDS: DOXYCYCLINE HYCLATE 100 MG TABLET PO SCH (09:00)
[2017-04-23] MEDS: MEMANTINE 10 MG TABLET. PO SCH (09:00)
[2017-04-23] MEDS: risperiDONE 0.5 MG TABLET. PO SCH (09:00)
[2017-04-23] MEDS: DIVALPROEX 125 MG CAP.SPRINK PO SCH (09:00)
[2017-04-23] MEDS: CHOLECALCIFEROL (VITAMIN D3) 50,000 UNIT CAPSULE PO SCH (09:00)
[2017-04-23] MEDS: NICOTINE 7MG PATCH. TD SCH (09:01)
--- NOTE | 2017-04-23 18:02 | PDOC ---
Exam Jose Demential Exam: Jose Note: Please also refer to the separate dictated note~for this date of service dictated separately.~Patient seen individually. Discussed the patient with Nursing staff reviewed the chart.~Reviewed interim history and current functioning. Reviewed vital signs,~Labs/ Radiology~and current medications noted below. Continue current treatment with the changes noted in the dictated addendum note Assessment: Vital Signs: Vital Signs Date Time Temp Pulse Resp B/P (MAP) Pulse Ox O2 Delivery O2 Flow Rate FiO2 04/23/17 12:06 95 04/23/17 08:59 64 151/83 04/23/17 05:58 97.8 18 Room Air I&O Intake and Output 04/23/17 07:00 Intake Total 740 ml Balance 740 ml Intake Oral 740 ml # Voids 1 # Bowel Movements 1 Current Medications: Meds: Current Medications Atorvastatin Calcium (Lipitor) 20 mg QHS PO Last administered on 04/22/17 20:10 ; Start 04/07/17 at 21:00; Stop 04/23/17 at 15:52; Status DC Bismuth Subsalicylate (Pepto-Bismol) 262 mg PRN DAILY PRN PO GI SYMPTOMS; Start 04/07/17 at 21:00; Stop 04/23/17 at 15:52; Status DC Carvedilol (Coreg) 6.25 mg BIDWMEALS PO Last administered on 04/23/17 08:59; Start 04/08/17 at 08:00; Stop 04/23/17 at 15:52; Status DC Cetirizine HCl (ZyrTEC) 10 mg PRN DAILY PRN PO ALLERGIES; Start 04/07/17 at 21: 00; Stop 04/23/17 at 15:52; Status DC Acetaminophen/ Hydrocodone Bitart (Lortab 5/325) 1 tab PRN Q4HRS PRN PO PAIN Last administered on 04/23/17 12:06; Start 04/07/17 at 21:00; Stop 04/23/17 at 15 :52; Status DC Loperamide HCl (Imodium) 2 mg PRN DAILY PRN PO loose stools; Start 04/07/17 at 21:00; Stop 04/23/17 at 15:52; Status DC Multivitamins/ Calcium (Thera-M Plus) 1 tab DAILY PO Last administered on 09:00; Start 04/08/17 at 09:00; Stop 04/23/17 at 15:52; Status DC Lorazepam (Ativan) 1 mg PRN TID PRN PO ANXIETY / AGITATION Last administered on 04/16/17 23:11; Start 04/07/17 at 21:15; Stop 04/23/17 at 15:52; Status DC Risperidone (RisperDAL) 1 mg BID PO Last administered on 04/10/17 08:04; Start 04/07/17 at 21:30; Stop 04/10/17 at 10:42; Status DC Memantine (Namenda) 10 mg BID PO Last administered on 04/23/17 09:00; Start at 09:00; Stop 04/23/17 at 15:52; Status DC Venlafaxine HCl (Effexor Xr) 37.5 mg BID PO Last administered on 04/08/17 08: 25; Start 04/08/17 at 09:00; Stop 04/08/17 at 18:57; Status DC Acetaminophen (Tylenol) 650 mg PRN Q6HRS PRN PO PAIN / TEMP Last administered on 04/22/17 17:23; Start 04/07/17 at 21:15; Stop 04/23/17 at 15:52; Status DC Multi-Ingredient Ointment (Analgesic [place]) 1 eri PRN QID PRN TP MUSCLE PAIN; Start 04/07/17 at 21:15; Stop 04/23/17 at 15:52; Status DC Al Hydroxide/Mg Hydroxide (Mylanta Plus Xs) 15 ml PRN AFTMEALHC PRN PO DYSPEPSIA; Start 04/07/17 at 21:15; Stop 04/23/17 at 15:52; Status DC Magnesium Hydroxide (Milk Of Magnesia) 2,400 mg PRN QHS PRN PO CONSTIPATION Last administered on 04/13/17 17:05; Start 04/07/17 at 21:15; Stop 04/23/17 at 15:52; Status DC Nicotine (Nicoderm Cq 7mg) 1 patch DAILY TD Last administered on 04/23/17 09:01 ; Start 04/08/17 at 09:00; Stop 04/23/17 at 15:52; Status DC Vitamin D (Vitamin D3) 50,000 unit WEEKLY PO Last administered on 04/23/17 09: 00; Start 04/09/17 at 09:00; Stop 04/23/17 at 15:52; Status DC Venlafaxine HCl (Effexor) 50 mg TID PO Last administered on 04/17/17 10:10; Start 04/08/17 at 19:00; Stop 04/17/17 at 10:47; Status DC Divalproex Sodium (Depakote Sprinkles) 250 mg HS PO Last administered on 19:51; Start 04/08/17 at 21:00; Stop 04/12/17 at 19:12; Status DC Risperidone (RisperDAL) 0.5 mg BID PO Last administered on 04/23/17 09:00; Start 04/10/17 at 21:00; Stop 04/23/17 at 15:52; Status DC Olanzapine (ZyPREXA ZYDIS) 2.5 mg PRN Q2HR PRN PO PSYCHOSIS; Start 04/12/17 at 09:00; Stop 04/23/17 at 15:52; Status DC Divalproex Sodium (Depakote Sprinkles) 250 mg BID PO Last administered on 10:11; Start 04/12/17 at 21:00; Stop 04/17/17 at 15:17; Status DC Buspirone HCl (Buspar) 5 mg BID92 PO Last administered on 04/21/17 13:37; Start 04/17/17 at 14:00; Stop 04/21/17 at 18:10; Status DC Duloxetine HCl (Cymbalta) 30 mg DAILY PO Last administered on 04/20/17 08:59; Start 04/18/17 at 09:00; Stop 04/20/17 at 09:01; Status DC Duloxetine HCl (Cymbalta) 60 mg DAILY PO Last administered on 04/23/17 08:59; Start 04/21/17 at 09:00; Stop 04/23/17 at 15:52; Status DC Divalproex Sodium (Depakote Sprinkles) 375 mg BID PO Last administered on 09:00; Start 04/17/17 at 21:00; Stop 04/23/17 at 15:52; Status DC Buspirone HCl (Buspar) 5 mg TID PO Last administered on 04/23/17 09:00; Start 04/21/17 at 21:00; Stop 04/23/17 at 15:52; Status DC Doxycycline Hyclate (Vibra-Tab) 100 mg BID PO Last administered on 04/23/17 09: 00; Start 04/22/17 at 21:00; Stop 04/23/17 at 15:52; Status DC Active Scripts Active Reported Buspirone Hcl 5 Mg Tablet 5 Mg PO TID Zyprexa (Olanzapine) 2.5 Mg Tablet 2.5 Mg PO PRN Q2HR PRN NICODERM CQ 7mg (Nicotine) 1 Each Patch.td24 1 Patch TD DAILY Analgesic [place] (Methyl Salicylate/Menthol) 28 Gm Oint...g. 1 Eri TP PRN QID PRN Milk Of Magnesia (Magnesium Hydroxide) 2,400 Mg/10 Ml Oral.susp 2,400 Mg PO PRN QHS PRN Mag-Al Plus Xs Suspension (Mag Hydrox/Al Hydrox/Simeth) 30 Ml Oral.susp 15 Ml PO PRN AFTMEALHC PRN Cymbalta (Duloxetine Hcl) 60 Mg Capsule.dr 60 Mg PO DAILY Depakote Sprinkle (Divalproex Sodium) 125 Mg Cap.sprink 375 Mg PO BID D3-50 (Cholecalciferol (Vitamin D3)) 50,000 Unit Capsule 50,000 Unit PO WEEKLY Acetaminophen 325 Mg Tablet 650 Mg PO PRN Q6HRS PRN Doxycycline Hyclate 100 Mg Capsule 1 Cap PO BID [place] Bismuth (Bismuth Subsalicylate) 262 Mg/15 Ml Oral.susp 262 Mg PO PRN DAILY PRN Lorazepam 1 Mg Tablet 1 Mg PO PRN TID PRN Loperamide (Loperamide Hcl) 2 Mg Capsule 2 Mg PO PRN PRN Hydrocodone-Apap 5-325 (Hydrocodone Bit/Acetaminophen) 1 Each Tablet 1 Tab PO PRN Q4HRS PRN Cetirizine Hcl 10 Mg Tablet 10 Mg PO PRN DAILY PRN Risperdal (Risperidone) 1 Mg Tablet 0.5 Mg PO BID Atorvastatin Calcium 20 Mg Tablet 20 Mg PO QHS Carvedilol 6.25 Mg Tablet 6.25 Mg PO BIDWMEALS Therems-M (Multivits, W-Fe,Other Min) 1 Each Tablet 1 Each PO DAILY Namenda Xr (Memantine Hcl) 28 Mg Cap.spr.24 28 Mg PO DAILY Diagnosis: Problems: (1) Bipolar affective disorder, mixed (2) Schizoaffective disorder (3) Dementia in Alzheimer's disease with delusions (4) Dementia in Alzheimer's disease with depression (5) Dementia, vascular, with delusions (6) Impulse control disorder (7) Anxiety disorder CRISTY SEWELL MD Apr 23, 2017 18:02
--- NOTE | 2017-04-24 00:36 | PN ---
DATE: 04/22/2017 SUBJECTIVE: This is a late entry 04/22/2017 covers elements not covered in my initial note. I met with the patient in the evening of 04/22/2017. The patient has been withdrawn and spending much time in bed till the evening hours. Temperature was 99.5. She has some symptoms of upper respiratory infection started on doxycycline. She also has some cough. White cell count has improved from the day before. REVIEW OF SYSTEMS: No CV, , eye, or ENT system symptoms on review other than the cough, but she is not forthcoming. MENTAL STATUS EXAM: Oriented to herself. Insight, judgment, recent and remote memory, attention, concentration, fund of knowledge poor consistent with her diagnosis mentioned in my initial note. LABORATORY DATA: Reviewed. PLAN: Continue current psychotropics with tentative transition to a lower level of care in the next day or two. MAN Julisa SEWELL MD DR: MARIA GUADALUPE/michael JOB#: [id number] / [id number]
--- NOTE | 2017-04-24 08:14 | DS ---
DATE OF DISCHARGE: 04/22/2017 DISCHARGE SUMMARY/PSYCHIATRIC PROGRESS NOTE This is a late entry for date of service 04/22/2017 and covers the elements not covered in my initial note of 04/22/2017 REASON FOR ADMISSION: Please refer to the admission history for details. 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 Behaviors were deemed dangerous, unmanageable at the [facility]. Having failed outpatient psychiatric interventions, she was referred for inpatient psychiatric stabilization. SIGNIFICANT FINDINGS AND CLINICAL COURSE: Following admission, the patient was seen daily individually by myself, followed medically per Dr. Glover/Dr. Alfonso. She appeared quite confused, but the history from the family indicated that she could readily recognize family members and they felt she was much more oriented than it appeared to us. The family believed much of her presentation was part of her bipolar mood disorder. She was started on Depakote and gradually adjusted to reach a therapeutic level of 63; however, on the unit 2, on my assessment and staff assessment, she appeared much more confused, disorganized and this could not be entirely accounted by her mood disorder. She did seem to respond to a combination of Namenda 10 mg b.i.d., Ativan 1 mg t.i.d. p.r.n. anxiety, Risperdal 0.5 mg b.i.d. and Depakote Sprinkles 375 mg b.i.d. with the therapeutic level of 63, BuSpar 5 mg 3 times a day, Cymbalta 60 mg a day, Zyprexa p.r.n. REVIEW OF SYSTEMS: Prior to discharge on 04/22/2017, no CV, , eye, ENT or pulmonary system symptoms on review. Reliability poor. MENTAL STATUS EXAM: Oriented to herself. Insight, judgment, recent and remote memory, attention, concentration, fund of knowledge poor, consistent with her diagnosis. CONDITION ON DISCHARGE: Improved. 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 Rest of the diagnosis unchanged from admission. DISCHARGE MEDICATIONS: Please refer to the [facility]. Outpatient psychiatric and medical followup at the [facility]. MAN Julisa SEWELL MD DR: MARIA GUADALUPE/michael JOB#: [id number] / [id number]
== END 2017-04-23 13:10 | DRG 884 ==
LOC: ER 16:03 → GEROPSY 19:16
PROVIDERS: ADMIT Psychiatry & Neurology Psychiatry; ATTEND Psychiatry & Neurology Psychiatry
DX: F01.51 Vascular dementia, unspecified severity, with behavioral disturbance (principal); F02.81 Dementia in other diseases classified elsewhere, unspecified severity, with behavioral disturbance; F41.9 Anxiety disorder, unspecified; F63.9 Impulse disorder, unspecified; G30.9 Alzheimer's disease, unspecified; G31.01 Pick's disease; E78.5 Hyperlipidemia, unspecified; E55.9 Vitamin D deficiency, unspecified; F22 Delusional disorders; F25.0 Schizoaffective disorder, bipolar type; I12.9 Hypertensive chronic kidney disease with stage 1 through stage 4 chronic kidney disease, or unspecified chronic kidney disease; G31.09 Other frontotemporal neurocognitive disorder; Z66 Do not resuscitate; F17.210 Nicotine dependence, cigarettes, uncomplicated; N18.9 Chronic kidney disease, unspecified; R13.10 Dysphagia, unspecified; Z79.899 Other long term (current) drug therapy; Z91.83 Wandering in diseases classified elsewhere
CPT/HCPCS: 36415; 70450; 71010; 80053; 80061; 80164; 81001; 82140; 82306; 82607; 83036; 83540; 83550; 83605; 83735; 84436; 84443; 84480; 85007; 85008; 85027; 86592; 86593; 93005; 99407; P9612; 99285-25